=== PATIENT | female | born 1975 | race Caucasian/White ===

== ENCOUNTER 2016-12-01 13:17 | Emergency (ER) | payer MEDICAID ==
[~2016-12-01] VITALS: Ht 160 cm; Wt 68.1 kg
[~2016-12-01 13:17] MED LIST: ADVA500A INH; AMBI10TA PO; HYDR-3516 PO; VENTAER INH
[2016-12-01 13:18] VITALS: BP 150/77; PULSE 87; RESP 17; TEMP 98.2; O2SAT 100
[2016-12-01] MEDS ORDERED: SODIUM CHLOR 0.9% 1000 ML INJ 1,000 ML IV SCH (13:48)
--- NOTE | 2016-12-01 13:48 | PD ---
HPI Chief Complaint: Flank/Kidney Pain Time Seen by Provider: 13:46 Travel History International Travel<30 days: No Contact w/Intl Traveler<30days: No Traveled to known affect area: No History of Present Illness HPI 40-year-old female coming in with four-day history of left flank pain , nausea, and vomiting. Patient is a history of kidney stones in the past the last one being in August 2016. Patient has seen urologist for this, but cannot remember his name. Patient denies fever, or diarrhea. Patient denies burning with urination. Patient states her last kidney stone she passed in August 2006. Patient denies , or vaginal discharge. Patient's last menstrual period was in the week of . Patient states her pain is typical for her kidney stones. Patient states her pain is now 8/10 and worsening since yesterday. Patient is allergic to tramadol. PFSH Past Medical History Asthma: Yes Anxiety: Yes Diminished Hearing: No Headaches: Yes Kidney Stones: Yes Immunizations Current: Yes Shingles: Yes ?: Not LMP: OCT 2016 : 3 Para: 2 Miscarriage: 1 Past Surgical History Abdominal Surgery: Yes (GASTRIC BYPASS) Cholecystectomy: Yes Other Surgery: Yes (KIDNEY STONES REMOVED X2) Social History Alcohol Use: Yes (SOCIALLY) Tobacco Use: No Substance Use: No Allergies-Medications (Allergen,Severity, Reaction): Coded Allergies: Tramadol (Verified Allergy, Severe, Headache, 12/01/16) Reported Meds & Prescriptions Reported Meds & Active Scripts Active Ambien (Zolpidem Tartrate) 10 Mg Tab 10 Mg PO HS PRN Reported Ventolin Hfa 18 GM Inh (Albuterol Sulfate) 90 Mcg/Act Aer 1 Puff INH Q4H PRN Advair Diskus Inh (Fluticasone-Salmeterol Inh) 500-50 Mcg/Blist Aer 1 Puff INH BID Rinse mouth after use. Review of Systems Except as stated in HPI: all other systems reviewed are Neg General / Constitutional: No: Fever, Chills Eyes: No: Visual changes HENT: No: Headaches Cardiovascular: No: Chest Pain or Discomfort Respiratory: No: Shortness of Breath Gastrointestinal: Positive: Nausea, Vomiting, No: Diarrhea, Abdominal Pain Genitourinary: Positive: Flank Pain, No: Urgency, Frequency, Dysuria, Pelvic Pain, Dyspareunia, Discharge, Vaginal Bleeding Musculoskeletal: No: Pain Skin: No Rash Neurologic: No: Weakness Psychiatric: No: Depression Endocrine: No: Polydipsia Hematologic/Lymphatic: No: Easy Bruising Physical Exam Narrative GENERAL: Patient appears in moderate distress. SKIN: Warm and dry. Mild pallor. Normal turgor. HEAD: Atraumatic. Normocephalic. EYES: Pupils equal and round. No scleral icterus. No injection or drainage. ENT: No nasal bleeding or discharge. Mucous membranes pink and somewhat dry. Pharynx is normal. NECK: Trachea midline. Supple and nontender. CARDIOVASCULAR: Regular rate and rhythm. No murmurs gallops or rubs. RESPIRATORY: No accessory muscle use. Clear to auscultation. Breath sounds equal bilaterally. GASTROINTESTINAL: Abdomen soft, non-tender, nondistended. Hepatic and splenic margins not palpable. Moderate left flank tenderness with percussion. MUSCULOSKELETAL: Extremities without clubbing, cyanosis, or edema. No obvious deformities. NEUROLOGICAL: Awake and alert. No obvious cranial nerve deficits. Motor grossly within normal limits. Five out of 5 muscle strength in the arms and legs. Normal speech. PSYCHIATRIC: Appropriate mood and affect; insight and judgment normal. Data Data Last Documented VS Vital Signs Date Time Temp Pulse Resp B/P Pulse Ox O2 Delivery O2 Flow Rate FiO2 12/01/16 15:28 16 12/01/16 13:32 87 12/01/16 13:18 98.2 150/77 100 Orders Complete Blood Count With Diff (12/01/16 13:48) Comprehensive Metabolic Panel (12/01/16 13:48) Urinalysis - C+S If Indicated (12/01/16 13:48) Iv Access Insert/Monitor (12/01/16 13:48) NPO (12/01/16 13:48) Morphine Inj (Morphine Inj) (12/01/16 14:00) Ondansetron Inj (Zofran Inj) (12/01/16 14:00) Sodium Chlor 0.9% 1000 Ml Inj (Ns 1000 M (12/01/16 13:48) Sodium Chloride 0.9% Flush (Ns Flush) (12/01/16 14:00) Ketorolac Inj (Toradol Inj) (12/01/16 14:00) Ed Urine Pregnancytest Poc (12/01/16 13:56) Urine Culture (12/01/16 14:20) Sodium Chlor 0.9% 1000 Ml Inj (Ns 1000 M (12/01/16 15:15) Ciprofloxacin (Cipro) (12/01/16 15:15) Labs Laboratory Tests Test 12/01/16 14:20 White Blood Count 6.4 TH/MM3 Red Blood Count 4.83 MIL/MM3 Hemoglobin 11.3 GM/DL Hematocrit 35.2 % Mean Corpuscular Volume 72.8 FL Mean Corpuscular Hemoglobin 23.5 PG Mean Corpuscular Hemoglobin 32.2 % Concent Red Cell Distribution Width 15.8 % Platelet Count 292 TH/MM3 Mean Platelet Volume 9.1 FL Neutrophils (%) (Auto) 68.0 % Lymphocytes (%) (Auto) 22.9 % Monocytes (%) (Auto) 6.0 % Eosinophils (%) (Auto) 1.9 % Basophils (%) (Auto) 1.2 % Neutrophils # (Auto) 4.4 TH/MM3 Lymphocytes # (Auto) 1.5 TH/MM3 Monocytes # (Auto) 0.4 TH/MM3 Eosinophils # (Auto) 0.1 TH/MM3 Basophils # (Auto) 0.1 TH/MM3 CBC Comment AUTO DIFF Differential Comment AUTO DIFF CONFIRMED Ovalocytes 1+ Keratocytes OCC Urine Color YELLOW Urine Turbidity HAZY Urine pH 6.0 Urine Specific [place] 1.009 Urine Protein TRACE mg/dL Urine Glucose (UA) NEG mg/dL Urine Ketones NEG mg/dL Urine Occult Blood MOD Urine Nitrite NEG Urine Bilirubin NEG Urine Urobilinogen LESS THAN 2.0 MG/DL Urine Leukocyte Esterase LARGE Urine RBC 11 /hpf Urine WBC 60 /hpf Urine Squamous Epithelial 23 /hpf Cells Urine Mucus FEW /lpf Microscopic Urinalysis Comment CULTURE INDICATED Sodium Level 141 MEQ/L Potassium Level 3.2 MEQ/L Chloride Level 105 MEQ/L Carbon Dioxide Level 29.0 MEQ/L Anion Gap 7 MEQ/L Blood Urea Nitrogen 7 MG/DL Creatinine 0.59 MG/DL Estimat Glomerular Filtration 112 ML/MIN Rate Random Glucose 93 MG/DL Calcium Level 8.8 MG/DL Total Bilirubin 0.7 MG/DL Aspartate Amino Transf 11 U/L (AST/SGOT) Alanine Aminotransferase 21 U/L (ALT/SGPT) Alkaline Phosphatase 76 U/L Total Protein 7.7 GM/DL Albumin 4.0 GM/DL MDM Medical Decision Making Medical Screen Exam Complete: Yes Emergency Medical Condition: Yes Differential Diagnosis Renal colic. Urinary tract infection. Nausea. Vomiting. Renal stones. Hydronephrosis. Narrative Course Patient is felt to be in pain but medically stable at time of exam. IV access is obtained and the patient is given 4 mg IV morphine, 4 mg Zofran IV , 30 mg ketorolac IV. Labs ordered including CBC, CMP, urinalysis, and urine test. CT scan was not ordered at this time as the patient has known kidney stones and recently passed one in August 2014. Patient is given 1000 mL normal saline IV bolus. After the treatment plan the patient feels much improved. A second 1000 mL normal saline bolus is ordered. CT scan is not ordered, as patient is improved. CBC and CMP are within normal limits. Urinalysis suggestive of urinary tract infection as well as large blood. Patiently treated both for UTI as well as renal colic. Patient given Cipro 500 mg twice a day 7 days. Patient is started on Flomax 4 mg daily at bedtime. #10 Patient is given Zofran 4 mg when necessary nausea #12. Patient given Lortab 5/325 one every 6 hours when necessary pain #30. Patient is to follow with her primary care physician or urologist as discussed. Patient is to return to the emergency room if symptoms do not improve or worsen. Diagnosis Primary Impression: Renal colic on left side Additional Impression: Urinary tract infection Qualified Code: N39.0 - Urinary tract infection with hematuria, site unspecified Referrals: Primary Care Physician Urologist Patient Instructions: Dysuria (ED), General Instructions, Renal Colic (ED) Scripts Ciprofloxacin (Cipro)500 Mg [id number] Mg PO BID #14 TAB Prov:Riley Flower MD 12/01/16 Tamsulosin (Flomax)0.4 Mg Cap0.4 Mg PO HS #10 CAP Ref 0 Prov:Riley Flower MD 12/01/16 Ondansetron (Zofran)4 Mg Tab4 Mg PO Q6HR PRN (NAUSEA OR VOMITING) #12 TAB Prov:Riley Flower MD 12/01/16 Hydrocodone-Acetaminophen 5-325 mg Tab1 Tab PO Q6H PRN (PAIN) #30 TAB Ref 0 Prov:Riley Flower MD 12/01/16 Disposition: 01 DISCHARGE HOME Condition: Stable Arcadio Parker Dec 01, 2016 13:48
[2016-12-01] MEDS ORDERED: KETOROLAC TROMETHAMINE 30 MG/ML (IVP) VIAL IVP ONE (14:00)
[2016-12-01] MEDS ORDERED: MORPHINE SULFATE 4 MG/ML INJ IV PUSH ONE (14:00)
[2016-12-01] MEDS ORDERED: ONDANSETRON HCL 4 MG/2 ML VIAL IVP ONE (14:00)
[2016-12-01] MEDS ORDERED: SODIUM CHLORIDE 0.9% FLUSH 5 ML FLUSH IVF PRN (14:00)
[2016-12-01 14:40] LABS: AUTOMATED NEUTROPHIL # 4.4 TH/MM3 (1.8-7.7); BASOPHIL # 0.1 TH/MM3 (0-0.2); BASOPHIL % 1.2 % (0.0-2.0); EOSINOPHIL # 0.1 TH/MM3 (0-0.4); EOSINOPHIL % 1.9 % (0.0-4.0); HEMATOCRIT 35.2 % (35.0-46.0); LYMPH % 22.9 % (9.0-44.0); LYMPHOCYTE # 1.5 TH/MM3 (1.0-4.8); MEAN CELL VOLUME 72.8 FL (80.0-100.0); MEAN CORPUSCULAR HEMOGLOBIN 23.5 PG (27.0-34.0); MEAN CORPUSCULAR HGB CONC 32.2 % (32.0-36.0); PLATELET COUNT 292 TH/MM3 (150-450); RED BLOOD COUNT 4.83 MIL/MM3 (4.00-5.30); RED CELL DISTRIBUTION WIDTH 15.8 % (11.6-17.2); WHITE BLOOD COUNT 6.4 TH/MM3 (4.0-11.0)
[2016-12-01 14:42] LABS: HEMO FLAGS AUTO DIFF
[2016-12-01 14:47] LABS: BLOOD, URINE MOD (NEG); COMMENT (UR) CULTURE INDICATED; CULTURE IF INDICATED CULTURE INDICATED; GLUCOSE,URINE NEG (NEG); KETONE, URINE NEG (NEG); MUCUS URINE FEW /lpf (OCC); NITRITE,URINE NEG (NEG); SQUAMOUS EPITHELIAL CELL URINE 23 /hpf (0-5); URINE COLOR YELLOW (YELLW/STRAW)
[2016-12-01 15:00] LABS: ALT (GPT) 21 U/L (10-53); ANION GAP 7 MEQ/L (5-15); AST (GOT) 11 U/L (15-37); BLOOD UREA NITROGEN 7 MG/DL (7-18); CHLORIDE 105 MEQ/L (98-107); GLOMERULAR FILTRATION RATE 112 ML/MIN (>89); POTASSIUM 3.2 MEQ/L (3.5-5.1); SODIUM (NA) 141 MEQ/L (136-145)
[2016-12-01 15:02] LABS: ALKALINE PHOSPHATASE 76 U/L (45-117); TOTAL BILIRUBIN ADULT 0.7 MG/DL (0.2-1.0)
[2016-12-01] MEDS ORDERED: CIPROFLOXACIN 500 MG TAB PO ONE (15:15)
[2016-12-01] MEDS ORDERED: SODIUM CHLOR 0.9% 1000 ML INJ 1,000 ML IV ONE (15:15)
[2016-12-01 15:22] LABS: KERATOCYTES OCC (NORMAL); OVALOCYTES 1+ (NORMAL); SCAN/DIFF AUTO DIFF CONFIRMED
[2016-12-01 15:28] VITALS: RESP 16
[2016-12-01] MEDS ORDERED: TAMS5CAP PO (15:38)
[2016-12-01] MEDS ORDERED: ZOFR4TAB PO (15:38)
[2016-12-01] MEDS ORDERED: HYDR-3516 PO (15:38)
[2016-12-01] MEDS ORDERED: CIPR-9 PO (15:38)
[2016-12-01] MEDS ORDERED: AMBI10TA PO (16:35)
[2016-12-06] MEDS ORDERED: NORE1TAB57 PO (17:05)
[2016-12-30] MEDS ORDERED: AMBI10TA PO (11:49)
[2017-01-18] MEDS ORDERED: FERR325T2 PO (15:02)
[2017-01-20] MEDS ORDERED: ESTR1.25 PO (13:20)
[2017-01-20] MEDS ORDERED: ONDA4TAB7 SL (13:54)
[2017-01-25] MEDS ORDERED: AMBI10TA PO (11:17)
[2017-01-31] MEDS ORDERED: DEPO150I IM (15:52)
[2017-01-31] MEDS ORDERED: HYDR-4107 PO (15:53)
[2017-02-03] MEDS ORDERED: NEBULIZER1 MI1 (14:03)
[2017-02-03] MEDS ORDERED: ALBU.5I NEB (14:03)
[2017-02-21] MEDS ORDERED: PANT40TA3 PO (11:21)
[2017-02-21] MEDS ORDERED: HYDR-3516 PO (11:24)
[2017-02-21] MEDS ORDERED: AMBI10TA PO (11:24)
[2017-03-13] MEDS ORDERED: CLOT10TR PO (16:08)
[2017-03-21] MEDS ORDERED: FLUC200T2 PO (18:11)
[2017-03-22] MEDS ORDERED: PANT40TA3 PO (08:49)
[2017-03-26] MEDS ORDERED: GABA300C5 PO (14:35)
[2017-03-27] MEDS ORDERED: AMBI10TA PO (20:06)
[2017-04-13] MEDS ORDERED: SERT-132 PO (10:14)
[2017-04-13] MEDS ORDERED: TRAZ100T4 PO (10:16)
[2017-04-13] MEDS ORDERED: SPRI28TA PO (10:20)
[2017-04-26] MEDS ORDERED: AMBI10TA PO (10:57)
[2017-05-15] MEDS ORDERED: VENL37.5 PO (16:19)
[2017-05-15] MEDS ORDERED: ULTR50TA5 PO (16:19)
[2017-05-16] MEDS ORDERED: ADVA500A INH (08:34)
== END 2016-12-01 16:42 | disposition home or self-care (01) ==
LOC: NEPC 13:17
DX: N39.0 Urinary tract infection, site not specified (principal); N23 Unspecified renal colic; Z87.442 Personal history of urinary calculi; J45.909 Unspecified asthma, uncomplicated
CPT/HCPCS: 80053; 81001; 84703; 85025; 87086; 96361; 96374; 96375; 99284; J1885; J2270; J2405; J7030

== ENCOUNTER 2017-01-17 17:27 | Emergency (ER) | payer MEDICAID ==
[~2017-01-17] VITALS: Ht 160 cm; Wt 64.0 kg
[~2017-01-17 17:27] MED LIST changes: +NORE1TAB57 PO; +ZOFR4TAB PO
[2017-01-17 17:30] VITALS: BP 140/76; PULSE 83; RESP 16; TEMP 97.7; O2SAT 100
[2017-01-17] MEDS ORDERED: SODIUM CHLORIDE 0.9% FLUSH 5 ML FLUSH IVF PRN ×2 (17:45→18:15)
[2017-01-17 18:13] LABS: AUTOMATED NEUTROPHIL # 5.3 TH/MM3 (1.8-7.7); BASOPHIL # 0.1 TH/MM3 (0-0.2); BASOPHIL % 1.1 % (0.0-2.0); EOSINOPHIL # 0.2 TH/MM3 (0-0.4); EOSINOPHIL % 2.8 % (0.0-4.0); HEMATOCRIT 30.7 % (35.0-46.0); LYMPH % 21.5 % (9.0-44.0); LYMPHOCYTE # 1.7 TH/MM3 (1.0-4.8); MEAN CELL VOLUME 72.4 FL (80.0-100.0); MEAN CORPUSCULAR HEMOGLOBIN 22.7 PG (27.0-34.0); MEAN CORPUSCULAR HGB CONC 31.4 % (32.0-36.0); NEUT % 68.6 % (16.0-70.0); PLATELET COUNT 393 TH/MM3 (150-450); RED BLOOD COUNT 4.24 MIL/MM3 (4.00-5.30); RED CELL DISTRIBUTION WIDTH 15.4 % (11.6-17.2); WHITE BLOOD COUNT 7.8 TH/MM3 (4.0-11.0)
[2017-01-17] MEDS ORDERED: MORPHINE SULFATE 4 MG/ML INJ IV PUSH ONE (18:15)
--- NOTE | 2017-01-17 18:20 | PD ---
HPI Chief Complaint: Flank/Kidney Pain Time Seen by Provider: 17:44 Travel History International Travel<30 days: No Contact w/Intl Traveler<30days: No Traveled to known affect area: No History of Present Illness HPI 41-year-old female with history of kidney stones here for evaluation of left flank pain. Pain started yesterday, was intermittent, sharp, radiates to her left lower abdomen, associated with nausea and vomiting as well as dysuria and hematuria. Today pain became more constant, is moderate to severe, no modifying factors. No fevers or chills. Patient reports history of kidney stones with history of lithotripsy, most recent kidney stone was in August 2016. PFSH Past Medical History Asthma: Yes Anxiety: Yes Diminished Hearing: No Headaches: Yes Kidney Stones: Yes Immunizations Current: Yes Shingles: Yes ?: Not LMP: 01/05/17 : 3 Para: 2 Miscarriage: 1 Past Surgical History Abdominal Surgery: Yes (GASTRIC BYPASS) Cholecystectomy: Yes Other Surgery: Yes (KIDNEY STONES REMOVED X2) Social History Alcohol Use: Yes (SOCIALLY) Tobacco Use: No Substance Use: No Allergies-Medications (Allergen,Severity, Reaction): Coded Allergies: Tramadol (Verified Allergy, Severe, Headache, 12/06/16) Reported Meds & Prescriptions Reported Meds & Active Scripts Active Ambien (Zolpidem Tartrate) 10 Mg Tab 10 Mg PO HS PRN Loestrin 1.5/30 (Norethindrone-Ethinyl Estradiol) 1.5-30 Mg-Mcg Tab 1 Tab PO DAILY Reported Ventolin Hfa 18 GM Inh (Albuterol Sulfate) 90 Mcg/Act Aer 1 Puff INH Q4H PRN Advair Diskus Inh (Fluticasone-Salmeterol Inh) 500-50 Mcg/Blist Aer 1 Puff INH BID Rinse mouth after use. Review of Systems Except as stated in HPI: all other systems reviewed are Neg Physical Exam Narrative GENERAL: Well-developed, well-nourished, no acute distress. SKIN: Warm and dry. No rash. HEAD: Atraumatic. Normocephalic. EYES: Pupils equal and round. No scleral icterus. No injection or drainage. ENT: Mucous membranes pink and moist. CARDIOVASCULAR: Regular rate and rhythm. RESPIRATORY: No accessory muscle use. Clear to auscultation. Breath sounds equal bilaterally. GASTROINTESTINAL: Abdomen soft, non-tender, nondistended. MUSCULOSKELETAL: No obvious deformities. No clubbing. No cyanosis. No edema. Moderate left CVA tenderness, no right CVA tenderness. NEUROLOGICAL: Awake and alert. No obvious cranial nerve deficits. Motor grossly within normal limits. Normal speech. PSYCHIATRIC: Appropriate mood and affect; insight and judgment normal. Data Data Last Documented VS Vital Signs Date Time Temp Pulse Resp B/P Pulse Ox O2 Delivery O2 Flow Rate FiO2 01/17/17 17:30 97.7 83 16 140/76 100 Orders Basic Metabolic Panel (Bmp) (01/17/17 17:44) Complete Blood Count With Diff (01/17/17 17:44) Prothrombin Time / Inr (Pt) (01/17/17 17:44) Act Partial Throm Time (Ptt) (01/17/17 17:44) Iv Access Insert/Monitor (01/17/17 17:44) Ecg Monitoring (01/17/17 17:44) Oximetry (01/17/17 17:44) Sodium Chloride 0.9% Flush (Ns Flush) (01/17/17 17:45) Urinalysis - C+S If Indicated (01/17/17 17:45) Beta Hcg (Quant/Titer) (01/17/17 17:58) Ct Abd/Pel W/O Iv Contrast (01/17/17 18:15) Sodium Chloride 0.9% Flush (Ns Flush) (01/17/17 18:15) Morphine Inj (Morphine Inj) (01/17/17 18:15) Ondansetron Inj (Zofran Inj) (01/17/17 18:30) Urine Culture (01/17/17 18:00) Hydromorphone Pf Inj (Dilaudid Pf Inj) (01/17/17 19:30) Ceftriaxone Inj (Rocephin Inj) (01/17/17 19:30) Sodium Chlor 0.9% 1000 Ml Inj (Ns 1000 M (01/17/17 19:30) Ed Urine Pregnancytest Poc (01/17/17 20:25) Labs Laboratory Tests Test 01/17/17 18:00 White Blood Count 7.8 TH/MM3 Red Blood Count 4.24 MIL/MM3 Hemoglobin 9.6 GM/DL Hematocrit 30.7 % Mean Corpuscular Volume 72.4 FL Mean Corpuscular Hemoglobin 22.7 PG Mean Corpuscular Hemoglobin 31.4 % Concent Red Cell Distribution Width 15.4 % Platelet Count 393 TH/MM3 Mean Platelet Volume 8.8 FL Neutrophils (%) (Auto) 68.6 % Lymphocytes (%) (Auto) 21.5 % Monocytes (%) (Auto) 6.0 % Eosinophils (%) (Auto) 2.8 % Basophils (%) (Auto) 1.1 % Neutrophils # (Auto) 5.3 TH/MM3 Lymphocytes # (Auto) 1.7 TH/MM3 Monocytes # (Auto) 0.5 TH/MM3 Eosinophils # (Auto) 0.2 TH/MM3 Basophils # (Auto) 0.1 TH/MM3 CBC Comment AUTO DIFF Differential Comment AUTO DIFF CONFIRMED Platelet Estimate NORMAL Platelet Morphology Comment NORMAL Ovalocytes 2+ Prothrombin Time 10.0 SEC Prothromb Time International 0.9 RATIO Ratio Activated Partial 24.2 SEC Thromboplast Time Urine Color YELLOW Urine Turbidity HAZY Urine pH 6.0 Urine Specific [place] 1.010 Urine Protein TRACE mg/dL Urine Glucose (UA) NEG mg/dL Urine Ketones NEG mg/dL Urine Occult Blood LARGE Urine Nitrite POS Urine Bilirubin NEG Urine Urobilinogen LESS THAN 2.0 MG/DL Urine Leukocyte Esterase LARGE Urine RBC /hpf Urine WBC 30 /hpf Urine Squamous Epithelial 7 /hpf Cells Urine Bacteria MOD /hpf Microscopic Urinalysis Comment CULTURE INDICATED Sodium Level 142 MEQ/L Potassium Level 4.0 MEQ/L Chloride Level 109 MEQ/L Carbon Dioxide Level 26.9 MEQ/L Anion Gap 6 MEQ/L Blood Urea Nitrogen 10 MG/DL Creatinine 0.63 MG/DL Estimat Glomerular Filtration 104 ML/MIN Rate Random Glucose 90 MG/DL Calcium Level 8.1 MG/DL [facility] Medical Decision Making Medical Screen Exam Complete: Yes Emergency Medical Condition: Yes Medical Record Reviewed: Yes Differential Diagnosis Nephrolithiasis, pyelonephritis, UTI, cystitis, colitis, dissection Narrative Course Vital signs show heart rate 83, blood pressure 140/76, pulse ox 100% on room air , oral temp of 97.7F. CBC is remarkable for hemoglobin 9.6, hematocrit 30.7, MCV 72, MCH 22, otherwise unremarkable. BMP is unremarkable. UA shows large occult blood, positive nitrites, large leukocyte esterase, innumerable rbc's, 30 wbc's, moderate bacteria, culture indicated. CT abdomen pelvis: CONCLUSION: 1. No acute renal abnormality. No perceptible stone or evidence of obstructive uropathy. 2. 15 mm right renal hypodensity likely a cyst. 3. Tiny fat-containing umbilical hernia. 4. Previous cholecystectomy and gastric bypass. 5. Normal appendix. The patient was made aware of all findings. I told her that I would like to do a rectal exam to check her stool for occult blood. She is declining this exam at this time. She is still complaining of left flank pain despite receiving 2 doses of pain medication. I told her I would like to admit her for further pain control, however the patient does not wish to be admitted at this time. Plan is to discharge her home with pain medication and antibiotics to cover for possible pyelonephritis given her UA findings. She will follow-up with her primary care physician this week. She was informed on when to return to the emergency department. She verbalizes understanding and agreement with plan. Diagnosis Primary Impression: Left flank pain Additional Impression: UTI (urinary tract infection) Qualified Code: N10 - Acute pyelonephritis Referrals: Primary Care Physician 3 days Additional Instructions: Follow-up with your primary care physician this week. Take medications as prescribed. Return to the emergency department for worsening symptoms or any other concerns. Scripts Oxycodone-Acetaminophen (Percocet)5-325 mg Tab1 Tab PO Q6H PRN (PAIN) #15 TAB Ref 0 Prov:Wilmer Webber MD 01/17/17 Sulfamethoxazole-Trimethoprim (Bactrim DS)800-160 Mg Tab1 Tab PO BID #20 TAB Ref 0 Prov:Wilmer Webber MD 01/17/17 Disposition: 01 DISCHARGE HOME Condition: Stable Wilmer Webber MD Jan 17, 2017 18:20
[2017-01-17 18:21] LABS: HEMO FLAGS AUTO DIFF
[2017-01-17] MEDS ORDERED: ONDANSETRON HCL 4 MG/2 ML VIAL IV PUSH ONE (18:30)
[2017-01-17 18:35] LABS: APTT (PATIENT) 24.2 SEC (24.3-30.1); INTERNATIONAL NORMALIZED RATIO 0.9 RATIO
[2017-01-17 18:46] LABS: BICARBONATE 26.9 MEQ/L (21.0-32.0)
[2017-01-17 19:02] LABS: OVALOCYTES 2+ (NORMAL); PLATELET ESTIMATE SMEAR NORMAL (NORMAL); PLATELET MORPHOLOGY NORMAL (NORMAL); SCAN/DIFF AUTO DIFF CONFIRMED
[2017-01-17 19:03] LABS: BACTERIA, URINE MOD /hpf; BLOOD, URINE LARGE (NEG); COMMENT (UR) CULTURE INDICATED; CULTURE IF INDICATED CULTURE INDICATED; GLUCOSE,URINE NEG (NEG); KETONE, URINE NEG (NEG); SQUAMOUS EPITHELIAL CELL URINE 7 /hpf (0-5); URINE COLOR YELLOW (YELLW/STRAW)
[2017-01-17 19:04] LABS: NITRITE,URINE POS (NEG)
[2017-01-17] MEDS ORDERED: cefTRIAXone INJ 1,000 MG in SODIUM CHLORIDE 0.9% INJ 100 ML IV ONE (19:30)
[2017-01-17] MEDS ORDERED: SODIUM CHLOR 0.9% 1000 ML INJ 1,000 ML IV ONE (19:30)
[2017-01-17] MEDS ORDERED: HYDROmorphone HCL PF 1 MG/ML VIAL IV PUSH ONE ×2 (19:30→21:30)
--- NOTE | 2017-01-17 21:00 | RADRPT ---
EXAM DATE/TIME: 01/17/2017 20:36 [facility] COMPARISON: No previous studies available for comparison. INDICATIONS : Left flank pain for 1 day; evaluate for calculi. ORAL CONTRAST: No oral contrast ingested. RADIATION DOSE: 8.86 CTDIvol (mGy) MEDICAL HISTORY : None SURGICAL HISTORY : Cholecystectomy. Gastric bypass. ENCOUNTER: Initial ACUITY: 1 day PAIN SCALE: 6/10 LOCATION: Left flank TECHNIQUE: Volumetric scanning of the abdomen and pelvis was performed. Using automated exposure control and ad justment of the mA and/or kV according to patient size, radiation dose was kept as low as reasonably achievable to obtain optimal diagnostic quality images. FINDINGS: LOWER LUNGS: The visualized lower lungs are clear. LIVER: Homogeneous density without lesion. There is no dilation of the biliary tree. Previous cholecystecto my. SPLEEN: Normal size without lesion. PANCREAS: Within normal limits. KIDNEYS: Suspected 15 mm cyst of the right mid zone. ADRENAL GLANDS: Within normal limits. VASCULAR: There is no aortic aneurysm. BOWEL/MESENTERY: The stomach, small bowel, and colon demonstrate no acute abnormality. There is no free intraperitone al air or fluid. Previous gastric bypass. The appendix is well-visualized, normal. ABDOMINAL WALL: Tiny fat-containing hernia at the umbilicus, series 2 image 80. RETROPERITONEUM: There is no lymphadenopathy. BLADDER: No wall thickening or mass. REPRODUCTIVE: Within normal limits. INGUINAL: There is no lymphadenopathy or hernia. MUSCULOSKELETAL: Within normal limits for patient age. CONCLUSION: 1. No acute renal abnormality. No perceptible stone or evidence of obstructive uropathy. 2. 15 mm right renal hypodensity likely a cyst. 3. Tiny fat-containing umbilical hernia. 4. Previous cholecystectomy and gastric bypass. 5. Normal appendix. Devante Clark MD on January 17, 2017 at 20:55 Board Certified Radiologist. This report was verified electronically.
[2017-01-17] MEDS ORDERED: PERC5TAB12 PO (21:19)
[2017-01-17] MEDS ORDERED: BACT800T5 PO (21:19)
[2017-01-17 22:35] LABS: BETA HCG QUANT LESS THAN 1 MIU/ML (0-5)
[2017-01-18] MEDS ORDERED: FERR325T2 PO (15:02)
[2017-01-20] MEDS ORDERED: ESTR1.25 PO (13:20)
[2017-01-20] MEDS ORDERED: ONDA4TAB7 SL (13:54)
[2017-01-25] MEDS ORDERED: AMBI10TA PO (11:17)
[2017-01-31] MEDS ORDERED: DEPO150I IM (15:52)
[2017-01-31] MEDS ORDERED: HYDR-4107 PO (15:53)
[2017-02-03] MEDS ORDERED: NEBULIZER1 MI1 (14:03)
[2017-02-03] MEDS ORDERED: ALBU.5I NEB (14:03)
[2017-02-21] MEDS ORDERED: PANT40TA3 PO (11:21)
[2017-02-21] MEDS ORDERED: AMBI10TA PO (11:24)
[2017-02-21] MEDS ORDERED: HYDR-3516 PO (11:24)
[2017-03-13] MEDS ORDERED: CLOT10TR PO (16:08)
[2017-03-21] MEDS ORDERED: FLUC200T2 PO (18:11)
[2017-03-22] MEDS ORDERED: PANT40TA3 PO (08:49)
[2017-03-26] MEDS ORDERED: GABA300C5 PO (14:35)
[2017-03-27] MEDS ORDERED: AMBI10TA PO (20:06)
[2017-04-13] MEDS ORDERED: SERT-132 PO (10:14)
[2017-04-13] MEDS ORDERED: TRAZ100T4 PO (10:16)
[2017-04-13] MEDS ORDERED: SPRI28TA PO (10:20)
[2017-04-26] MEDS ORDERED: AMBI10TA PO (10:57)
[2017-05-15] MEDS ORDERED: ULTR50TA5 PO (16:19)
[2017-05-15] MEDS ORDERED: VENL37.5 PO (16:19)
[2017-05-16] MEDS ORDERED: ADVA500A INH (08:34)
== END 2017-01-17 21:51 | disposition home or self-care (01) ==
LOC: NEPA 17:27
DX: R10.9 Unspecified abdominal pain (principal); N39.0 Urinary tract infection, site not specified; B96.20 Unspecified Escherichia coli [E. coli] as the cause of diseases classified elsewhere; R11.2 Nausea with vomiting, unspecified; R30.0 Dysuria; J45.909 Unspecified asthma, uncomplicated
CPT/HCPCS: 74176; 80048; 81001; 84702; 84703; 85025; 85610; 85730; 87077; 87086; 87186; 96374; 96375; 96376; 99284; J0696; J1170; J2270; J2405; J7030

== ENCOUNTER 2017-01-23 18:05 | Emergency (ER) | payer MEDICAID ==
[~2017-01-23] VITALS: Ht 160 cm; Wt 65.9 kg
[~2017-01-23 18:05] MED LIST changes: +BACT800T5 PO; +ESTR1.25 PO; +FERR325T2 PO; -HYDR-3516 PO; +ONDA4TAB7 SL; +PERC5TAB12 PO; -ZOFR4TAB PO
[2017-01-23 18:08] VITALS: BP 158/89; PULSE 74; RESP 16; TEMP 98.2; O2SAT 98
[2017-01-23] MEDS ORDERED: SODIUM CHLOR 0.9% 1000 ML INJ 1,000 ML IV ONE (18:41)
[2017-01-23] MEDS ORDERED: SODIUM CHLOR 0.9% 1000 ML INJ 1,000 ML IV SCH (18:48)
--- NOTE | 2017-01-23 18:57 | PD ---
HPI . Left flank pain Chief Complaint: Flank/Kidney Pain Time Seen by Provider: 18:41 Travel History International Travel<30 days: No Contact w/Intl Traveler<30days: No Traveled to known affect area: No History of Present Illness HPI Patient presents complaining with left flank pain. Symptoms started on about January 16. She was seen here on the for a presumed kidney stone. Her CT did not show a stone. Her UA did show a UTI. She was treated for pyelonephritis with Bactrim. She states that she has been taking this as directed. Despite that, she continues to have left flank pain. She states that she just does not feel well. She states that she is hot and cold. She has nausea. She is not vomiting. She does not currently have any urinary tract symptoms. PFSH Past Medical History Asthma: Yes Anxiety: Yes Diminished Hearing: No Headaches: Yes Kidney Stones: Yes Immunizations Current: Yes Shingles: Yes Tetanus Vaccination: > 5 Years ?: Not LMP: 01/05/2017 : 3 Para: 2 Miscarriage: 1 Past Surgical History Abdominal Surgery: Yes (GASTRIC BYPASS) Cholecystectomy: Yes Other Surgery: Yes (KIDNEY STONES REMOVED X2) Social History Alcohol Use: Yes (SOCIALLY) Tobacco Use: No Substance Use: No Allergies-Medications (Allergen,Severity, Reaction): Coded Allergies: Tramadol (Verified Allergy, Severe, Headache, 01/23/17) Reported Meds & Prescriptions Reported Meds & Active Scripts Active Ondansetron Odt 4 Mg Tab 4 Mg SL Q6HR PRN Premarin (Estrogens Conjugated) 1.25 Mg Tab 1.25 Mg PO DAILY Ferrous Sulfate DR (Ferrous Sulfate) 325 Mg Tabdr 1 Tab PO BID Percocet (Oxycodone-Acetaminophen) 5-325 mg Tab 1 Tab PO Q6H PRN Bactrim DS (Sulfamethoxazole-Trimethoprim) 800-160 Mg Tab 1 Tab PO BID Ambien (Zolpidem Tartrate) 10 Mg Tab 10 Mg PO HS PRN Loestrin 1.5/30 (Norethindrone-Ethinyl Estradiol) 1.5-30 Mg-Mcg Tab 1 Tab PO DAILY Reported Ventolin Hfa 18 GM Inh (Albuterol Sulfate) 90 Mcg/Act Aer 1 Puff INH Q4H PRN Advair Diskus Inh (Fluticasone-Salmeterol Inh) 500-50 Mcg/Blist Aer 1 Puff INH BID Rinse mouth after use. Review of Systems Except as stated in HPI: all other systems reviewed are Neg General / Constitutional: Positive: Chills Gastrointestinal: Positive: Nausea, No: Vomiting, Diarrhea, Abdominal Pain Genitourinary: Positive: Flank Pain, No: Urgency, Frequency, Dysuria Musculoskeletal: Positive: Weakness Neurologic: Positive: Change in Mentation (she states she feels spaced out) Physical Exam Narrative GENERAL: This is a healthy-appearing young woman who does not appear to be in any acute distress. SKIN: Warm and dry. Normal color. HEAD: Atraumatic. Normocephalic. EYES: Pupils equal and round. ENT: No nasal bleeding or discharge. Mucous membranes pink and moist. NECK: Trachea midline. Neck is supple. CARDIOVASCULAR: Regular rate and rhythm. Heart sounds are normal. RESPIRATORY: No accessory muscle use. Lungs full air movement throughout. GASTROINTESTINAL: Abdomen soft, non-tender, nondistended. I am unable to elicit any CVA tenderness. MUSCULOSKELETAL: No obvious deformities. No edema. NEUROLOGICAL: Awake and alert. No obvious cranial nerve deficits. Motor grossly within normal limits. Normal speech. PSYCHIATRIC: Appropriate mood and affect; insight and judgment normal. Data Data Last Documented VS Vital Signs Date Time Temp Pulse Resp B/P Pulse Ox O2 Delivery O2 Flow Rate FiO2 01/23/17 18:45 17 01/23/17 18:08 98.2 74 158/89 98 Orders Complete Blood Count With Diff (01/23/17 18:41) Urinalysis - C+S If Indicated (01/23/17 18:41) Sodium Chlor 0.9% 1000 Ml Inj (Ns 1000 M (01/23/17 18:41) Comprehensive Metabolic Panel (01/23/17 18:48) Lactic Acid (01/23/17 18:48) Ondansetron Inj (Zofran Inj) (01/23/17 19:00) Sodium Chlor 0.9% 1000 Ml Inj (Ns 1000 M (01/23/17 18:48) Sodium Chloride 0.9% Flush (Ns Flush) (01/23/17 19:00) Ketorolac Inj (Toradol Inj) (01/23/17 19:00) Labs Laboratory Tests Test 01/23/17 19:30 White Blood Count 7.8 TH/MM3 Red Blood Count 4.22 MIL/MM3 Hemoglobin 9.6 GM/DL Hematocrit 29.9 % Mean Corpuscular Volume 71.0 FL Mean Corpuscular Hemoglobin 22.8 PG Mean Corpuscular Hemoglobin 32.1 % Concent Red Cell Distribution Width 15.4 % Platelet Count 354 TH/MM3 Mean Platelet Volume 9.4 FL Neutrophils (%) (Auto) 65.5 % Lymphocytes (%) (Auto) 24.2 % Monocytes (%) (Auto) 6.6 % Eosinophils (%) (Auto) 2.7 % Basophils (%) (Auto) 1.0 % Neutrophils # (Auto) 5.1 TH/MM3 Lymphocytes # (Auto) 1.9 TH/MM3 Monocytes # (Auto) 0.5 TH/MM3 Eosinophils # (Auto) 0.2 TH/MM3 Basophils # (Auto) 0.1 TH/MM3 CBC Comment AUTO DIFF Urine Color YELLOW Urine Turbidity CLEAR Urine pH 6.5 Urine Specific [place] 1.009 Urine Protein NEG mg/dL Urine Glucose (UA) NEG mg/dL Urine Ketones NEG mg/dL Urine Occult Blood SMALL Urine Nitrite NEG Urine Bilirubin NEG Urine Urobilinogen LESS THAN 2.0 MG/DL Urine Leukocyte Esterase SMALL Urine RBC LESS THAN 1 /hpf Urine WBC 1 /hpf Urine Squamous Epithelial 4 /hpf Cells Urine Mucus FEW /lpf Microscopic Urinalysis Comment CULT NOT INDICATED Sodium Level 139 MEQ/L Potassium Level 4.0 MEQ/L Chloride Level 105 MEQ/L Carbon Dioxide Level 27.1 MEQ/L Anion Gap 7 MEQ/L Blood Urea Nitrogen 9 MG/DL Creatinine 0.63 MG/DL Estimat Glomerular Filtration 104 ML/MIN Rate Random Glucose 78 MG/DL Lactic Acid Level 0.6 mmol/L Calcium Level 8.3 MG/DL Total Bilirubin 0.3 MG/DL Aspartate Amino Transf 13 U/L (AST/SGOT) Alanine Aminotransferase 17 U/L (ALT/SGPT) Alkaline Phosphatase 49 U/L Total Protein 7.4 GM/DL Albumin 3.4 GM/DL [facility] Medical Decision Making Medical Screen Exam Complete: Yes Emergency Medical Condition: Yes Medical Record Reviewed: Yes (I have reviewed her record from 01/17. CT was negative for stone. UA did show a UTI. She was treated with Bactrim.) Differential Diagnosis Differential diagnosis of flank pain includes but is not limited to kidney stone , pyelonephritis, musculoskeletal pain, PE Narrative Course Patient presents complaining with left flank pain. She states that she is feeling "spaced out." I have ordered a repeat UA, CBC, comprehensive panel, lipase. She will be given IV fluids. She will be given IV Toradol and Zofran. CBC & BMP Diagram 01/23/17 19:30 Her UA is markedly improved. She now has only small leukocyte esterase, 1 white cell and no bacteria. I have not found any objective reason for her continued symptoms. She is stable to follow up with her primary care physician. Diagnosis Primary Impression: Left flank pain Patient Instructions: Flank Pain (ED), General Instructions Scripts Ibuprofen 800 Mg [id number] Mg PO Q8H PRN (pain) #30 TAB Ref 0 Prov:Kristel De La Rosa MD 01/23/17 Cyclobenzaprine (Flexeril)10 Mg Tab10 Mg PO TID #30 TAB Ref 0 Prov:Kristel De La Rosa MD 01/23/17 Disposition: 01 DISCHARGE HOME Condition: Stable Kristel De La Rosa MD Jan 23, 2017 18:57
[2017-01-23] MEDS ORDERED: ONDANSETRON HCL 4 MG/2 ML VIAL IVP ONE (19:00)
[2017-01-23] MEDS ORDERED: SODIUM CHLORIDE 0.9% FLUSH 5 ML FLUSH IVF PRN (19:00)
[2017-01-23] MEDS ORDERED: KETOROLAC TROMETHAMINE 30 MG/ML (IVP) VIAL IVP ONE (19:00)
[2017-01-23 19:51] LABS: AUTOMATED NEUTROPHIL # 5.1 TH/MM3 (1.8-7.7); BASOPHIL # 0.1 TH/MM3 (0-0.2); EOSINOPHIL # 0.2 TH/MM3 (0-0.4); EOSINOPHIL % 2.7 % (0.0-4.0); HEMATOCRIT 29.9 % (35.0-46.0); LYMPH % 24.2 % (9.0-44.0); LYMPHOCYTE # 1.9 TH/MM3 (1.0-4.8); MEAN CORPUSCULAR HEMOGLOBIN 22.8 PG (27.0-34.0); MEAN CORPUSCULAR HGB CONC 32.1 % (32.0-36.0); MONO % 6.6 % (0.0-8.0); NEUT % 65.5 % (16.0-70.0); PLATELET COUNT 354 TH/MM3 (150-450); RED BLOOD COUNT 4.22 MIL/MM3 (4.00-5.30); RED CELL DISTRIBUTION WIDTH 15.4 % (11.6-17.2); WHITE BLOOD COUNT 7.8 TH/MM3 (4.0-11.0)
[2017-01-23 19:54] LABS: BLOOD, URINE SMALL (NEG); COMMENT (UR) CULT NOT INDICATED; CULTURE IF INDICATED CULT NOT INDICATED; GLUCOSE,URINE NEG (NEG); KETONE, URINE NEG (NEG); MUCUS URINE FEW /lpf (OCC); NITRITE,URINE NEG (NEG); PH, URINE 6.5 (5.0-8.5); SQUAMOUS EPITHELIAL CELL URINE 4 /hpf (0-5); URINE COLOR YELLOW (YELLW/STRAW)
[2017-01-23 20:07] LABS: HEMO FLAGS AUTO DIFF
[2017-01-23 20:14] LABS: ALKALINE PHOSPHATASE 49 U/L (45-117); ALT (GPT) 17 U/L (10-53); ANION GAP 7 MEQ/L (5-15); AST (GOT) 13 U/L (15-37); BICARBONATE 27.1 MEQ/L (21.0-32.0); BLOOD UREA NITROGEN 9 MG/DL (7-18); CHLORIDE 105 MEQ/L (98-107); GLOMERULAR FILTRATION RATE 104 ML/MIN (>89); SODIUM (NA) 139 MEQ/L (136-145); TOTAL BILIRUBIN ADULT 0.3 MG/DL (0.2-1.0)
[2017-01-23] MEDS ORDERED: IBUP800T23 PO (20:20)
[2017-01-23] MEDS ORDERED: CYCL1TAB29 PO (20:20)
[2017-01-23 20:48] LABS: SCAN/DIFF AUTO DIFF CONFIRMED
[2017-01-25] MEDS ORDERED: AMBI10TA PO (11:17)
[2017-01-31] MEDS ORDERED: DEPO150I IM (15:52)
[2017-01-31] MEDS ORDERED: HYDR-4107 PO (15:53)
[2017-02-03] MEDS ORDERED: ALBU.5I NEB (14:03)
[2017-02-03] MEDS ORDERED: NEBULIZER1 MI1 (14:03)
[2017-02-21] MEDS ORDERED: PANT40TA3 PO (11:21)
[2017-02-21] MEDS ORDERED: AMBI10TA PO (11:24)
[2017-02-21] MEDS ORDERED: HYDR-3516 PO (11:24)
[2017-03-13] MEDS ORDERED: CLOT10TR PO (16:08)
[2017-03-21] MEDS ORDERED: FLUC200T2 PO (18:11)
[2017-03-22] MEDS ORDERED: PANT40TA3 PO (08:49)
[2017-03-26] MEDS ORDERED: GABA300C5 PO (14:35)
[2017-03-27] MEDS ORDERED: AMBI10TA PO (20:06)
[2017-04-13] MEDS ORDERED: SERT-132 PO (10:14)
[2017-04-13] MEDS ORDERED: TRAZ100T4 PO (10:16)
[2017-04-13] MEDS ORDERED: SPRI28TA PO (10:20)
[2017-04-26] MEDS ORDERED: AMBI10TA PO (10:57)
[2017-05-15] MEDS ORDERED: ULTR50TA5 PO (16:19)
[2017-05-15] MEDS ORDERED: VENL37.5 PO (16:19)
[2017-05-16] MEDS ORDERED: ADVA500A INH (08:34)
== END 2017-01-23 21:16 | disposition home or self-care (01) ==
LOC: NEPA 18:05
DX: R10.84 Generalized abdominal pain (principal)
CPT/HCPCS: 80053; 81001; 83605; 85025; 96361; 96374; 96375; 99284; J1885; J2405; J7030

== ENCOUNTER 2017-02-18 12:57 | Emergency (ER) | payer MEDICAID ==
[~2017-02-18] VITALS: Ht 160 cm; Wt 70.0 kg
[~2017-02-18 12:57] MED LIST changes: +ALBU.5I NEB; -AMBI10TA PO; -BACT800T5 PO; +CYCL1TAB29 PO; +DEPO150I IM; -ESTR1.25 PO; +HYDR-4107 PO; +IBUP800T23 PO; +NEBULIZER1 MI1; -NORE1TAB57 PO; -PERC5TAB12 PO
[2017-02-18 13:08] VITALS: BP 139/96; PULSE 89; RESP 17; TEMP 98.7; O2SAT 100
[2017-02-18] MEDS ORDERED: AMBI5TAB PO (13:18)
[2017-02-18 13:19] LABS: BLOOD, URINE TRACE (NEG); GLUCOSE,URINE NEG (NEG); KETONE, URINE TRACE mg/dL (NEG); NITRITE,URINE NEG (NEG)
[2017-02-18 13:21] LABS: METHOD OF COLLECTION CLEAN CATCH; URINE COLOR YELLOW (YELLW/STRAW)
[2017-02-18 13:23] LABS: BACTERIA, URINE OCC /hpf; MUCUS URINE FEW /lpf (OCC)
[2017-02-18 13:24] LABS: COMMENT (UR) CULT NOT INDICATED; CULTURE IF INDICATED CULT NOT INDICATED
[2017-02-18] MEDS ORDERED: NORC5TAB PO (13:40)
[2017-02-18] MEDS ORDERED: MACR100C2 PO (13:40)
[2017-02-18] MEDS ORDERED: ZOFR8TAB4 SL (13:40)
--- NOTE | 2017-02-18 13:41 | PD ---
HPI Chief Complaint: Flank/Kidney Pain Time Seen by Provider: 13:34 Travel History International Travel<30 days: No Contact w/Intl Traveler<30days: No Traveled to known affect area: No History of Present Illness HPI 41-year-old female with history of ureterolithiasis here with complaint of flank pain. Patient has had 3-4 days of left-sided flank pain. This is sharp. Radiates slightly into the left side of the abdomen. Associated urinary frequency but no hematuria. Patient states this feels similar previous episodes of ureterolithiasis. She is been taking Tylenol, ibuprofen without improvement of her symptoms at home. Some nausea but no vomiting. She's had history of lithotripsy 2, and states that this pain is not as severe as when she's required lithotripsy in the past. She no longer has a local urologist due to insurance change. PFSH Past Medical History Asthma: Yes Anxiety: Yes Diminished Hearing: No Headaches: Yes Kidney Stones: Yes Immunizations Current: Yes Shingles: Yes ?: Not LMP: 1.5 WEEKS : 3 Para: 2 Miscarriage: 1 Past Surgical History Abdominal Surgery: Yes (GASTRIC BYPASS) Cholecystectomy: Yes Other Surgery: Yes (KIDNEY STONES REMOVED X2) Social History Alcohol Use: Yes (SOCIALLY) Tobacco Use: No Substance Use: No Allergies-Medications (Allergen,Severity, Reaction): Coded Allergies: Tramadol (Verified Allergy, Severe, Headache, 02/18/17) Reported Meds & Prescriptions Reported Meds & Active Scripts Active Macrobid (Nitrofurantoin Monoh/Nitrofur Macro) 100 Mg Cap 100 Mg PO BID 7 Days [place] (Hydrocodone-Acetaminophen) 5-325 mg Tab 1-2 Tab PO Q6H PRN Zofran Odt (Ondansetron Odt) 8 Mg Tab 8 Mg SL Q8H PRN Albuterol Neb (Albuterol Sulfate) 2.5 Mg/0.5 Ml Neb 2.5 Mg NEB Q4HR NEB PRN Read complete instructions carefully before using. Depo-Provera Inj (Medroxyprogesterone Inj) 150 Mg/Ml Inj 150 Mg IM Q90D Reported Ambien (Zolpidem Tartrate) 5 Mg Tab 5 Mg PO HS PRN Ventolin Hfa 18 GM Inh (Albuterol Sulfate) 90 Mcg/Act Aer 1 Puff INH Q4H PRN Advair Diskus Inh (Fluticasone-Salmeterol Inh) 500-50 Mcg/Blist Aer 1 Puff INH BID Rinse mouth after use. Review of Systems Except as stated in HPI: all other systems reviewed are Neg Physical Exam Narrative GENERAL: Well-appearing female in no acute distress SKIN: Warm and dry. HEAD: Normocephalic. EYES: No scleral icterus. No injection or drainage. ENT: Mucous membranes pink and moist. NECK: Supple CARDIOVASCULAR: Regular rate and rhythm. RESPIRATORY: No accessory muscle use. GASTROINTESTINAL: Abdomen soft, left-sided CVA tenderness to palpation mild, no reproducible tenderness to palpation of the abdomen. MUSCULOSKELETAL: Normal gait NEUROLOGICAL: Awake and alert. Normal speech. PSYCHIATRIC: Appropriate mood and affect; insight and judgment normal. Data Data Last Documented VS Vital Signs Date Time Temp Pulse Resp B/P Pulse Ox O2 Delivery O2 Flow Rate FiO2 02/18/17 13:08 98.7 89 17 139/96 100 Orders Urinalysis - C+S If Indicated (02/18/17 13:09) Ketorolac Inj (Toradol Inj) (02/18/17 13:45) Acetamin-Hydrocod 325-5 Mg ([place] 5-325 (02/18/17 13:45) Labs Laboratory Tests Test 02/18/17 13:10 Urine Collection Type CLEAN CATCH Urine Color YELLOW Urine Turbidity CLEAR Urine pH 6.0 Urine Specific [place] 1.018 Urine Protein TRACE mg/dL Urine Glucose (UA) NEG mg/dL Urine Ketones TRACE mg/dL Urine Occult Blood TRACE Urine Nitrite NEG Urine Bilirubin NEG Urine Leukocyte Esterase TRACE Urine RBC 4-9 /hpf Urine WBC 3-5 /hpf Urine Squamous Epithelial 6-8 /hpf Cells Urine Bacteria OCC /hpf Urine Mucus FEW /lpf Microscopic Urinalysis Comment CULT NOT INDICATED Urine Collection Time 13:10 [facility] Medical Decision Making Medical Screen Exam Complete: Yes Emergency Medical Condition: Yes Medical Record Reviewed: Yes Differential Diagnosis 41-year-old female with history of ureterolithiasis here with 3-4 days of left- sided flank pain with urinary symptoms. Differential includes ureterolithiasis , UTI, cystitis versus pyelonephritis and less likely musculoskeletal etiology. Narrative Course Patient given Toradol, Doole. Urinalysis shows leukocyte esterase with 12 white cells, red cells and bacteria. Given the questionable UTI patient will be treated with Macrobid for home. Patient felt improved and will be discharged home with Zofran and Doole as needed for pain. I do not think patient warrants imaging at this time given overall easy to control symptoms. Patient agrees, she's had many CTs and would like to avoid further imaging if at all possible. Diagnosis Primary Impression: Renal colic Referrals: Raimundo Alas DO call for appointment Urologist call for appointment Patient Instructions: General Instructions, Renal Colic (ED) Additional Instructions: Doole as needed for pain. Zofran as needed for nausea. Antibiotics as prescribed. Med/Other Pt SpecificInfo: Prescription(s) given Scripts Nitrofurantoin Monohydrate Macrocrystals (Macrobid)100 Mg [id number] Mg PO BID 7 Days Ref 0 Prov:Aileen Husain MD 02/18/17 Hydrocodone-Acetaminophen (Doole)5-325 mg Tab1-2 Tab PO Q6H PRN (PAIN) #20 TAB Ref 0 Prov:Aileen Husain MD 02/18/17 Ondansetron Odt (Zofran Odt)8 Mg Tab8 Mg SL Q8H PRN (NAUSEA OR VOMITING) #10 TAB Ref 0 Prov:Aileen Husain MD 02/18/17 Disposition: 01 DISCHARGE HOME Condition: Stable Aileen Husain MD Feb 18, 2017 13:41
[2017-02-18] MEDS ORDERED: ACETAMINOPHEN/HYDROcodone 325 MG/5 MG TAB PO ONE (13:45)
[2017-02-18] MEDS ORDERED: KETOROLAC TROMETHAMINE 60 MG/2 ML (IM) VIAL IM ONE (13:45)
[2017-02-21] MEDS ORDERED: PANT40TA3 PO (11:21)
[2017-02-21] MEDS ORDERED: HYDR-3516 PO (11:24)
[2017-02-21] MEDS ORDERED: AMBI10TA PO (11:24)
[2017-03-13] MEDS ORDERED: CLOT10TR PO (16:08)
[2017-03-21] MEDS ORDERED: FLUC200T2 PO (18:11)
[2017-03-22] MEDS ORDERED: PANT40TA3 PO (08:49)
[2017-03-26] MEDS ORDERED: GABA300C5 PO (14:35)
[2017-03-27] MEDS ORDERED: AMBI10TA PO (20:06)
[2017-04-13] MEDS ORDERED: SERT-132 PO (10:14)
[2017-04-13] MEDS ORDERED: TRAZ100T4 PO (10:16)
[2017-04-13] MEDS ORDERED: SPRI28TA PO (10:20)
[2017-04-26] MEDS ORDERED: AMBI10TA PO (10:57)
[2017-05-15] MEDS ORDERED: VENL37.5 PO (16:19)
[2017-05-15] MEDS ORDERED: ULTR50TA5 PO (16:19)
[2017-05-16] MEDS ORDERED: ADVA500A INH (08:34)
== END 2017-02-18 14:23 | disposition home or self-care (01) ==
LOC: PHED 12:57
DX: N23 Unspecified renal colic (principal)
CPT/HCPCS: 81001; 96372; 99284; J1885

== ENCOUNTER 2017-02-28 15:47 | Emergency (ER) | payer MEDICAID ==
[~2017-02-28] VITALS: Ht 160 cm; Wt 68.0 kg
[~2017-02-28 15:47] MED LIST changes: +AMBI10TA PO; +AMBI5TAB PO; -CYCL1TAB29 PO; -FERR325T2 PO; +HYDR-3516 PO; -HYDR-4107 PO; -IBUP800T23 PO; +MACR100C2 PO; -NEBULIZER1 MI1; +NORC5TAB PO; -ONDA4TAB7 SL; +PANT40TA3 PO; +ZOFR8TAB4 SL
[2017-02-28 15:49] VITALS: BP 147/77; PULSE 78; RESP 12; TEMP 98.8; O2SAT 100
--- NOTE | 2017-02-28 15:53 | PD ---
Physical Exam Date Seen by Provider: Feb 28, 2017 Time Seen by Provider: 15:49 Narrative 41 YOWF C/O L FLANK AND CP FOR 4 WEEKS. WORSE FOR 1 WEEK. H/O GASTRIC BYPASS AND KIDNEY STONES. SEEN IN ER AT LAST WEEK AND HAD CT ABD. VSS . AWAITING BED PLACEMENT [facility] Medical Record Reviewed: Yes Supervised Visit with JAN: Yes Eugene Cordero Feb 28, 2017 15:53
[2017-02-28 17:48] VITALS: O2SAT 98
--- NOTE | 2017-02-28 17:52 | PD ---
HPI Chief Complaint: Chest Pain Time Seen by Provider: 17:19 Travel History International Travel<30 days: No Contact w/Intl Traveler<30days: No Traveled to known affect area: No History of Present Illness HPI 41-year-old female came to the emergency room with history of left sided flank and chest pain that has been going on for past 2 weeks. Patient says she was seen in this emergency room about 10 days ago for this pain. She was discharged home on pain medication but she says that she continued to be in pain and now it's worse. She saw her primary care was trying to give her referral to a GI specialist. Patient had her gastric bypass surgery 2 to 3 years ago at [facility]. She says she is afraid to eat because every time she does she feels very full and like something is pushing and causing this pain. She feels like something is swelling inside her on the left side. Vital signs were stable in the ER. Eating makes the pain worse from what it sounds like. She had a CAT scan done of her abdomen and pelvis 6 weeks ago which was negative. Patient is currently on pain medications at home. [facility] Past Medical History Narrative Medical List of her past medical, surgical, social and family history was reviewed from the nursing note. Asthma: Yes Anxiety: Yes Diminished Hearing: No Headaches: Yes Kidney Stones: Yes Immunizations Current: Yes Shingles: Yes Tetanus Vaccination: > 5 Years Influenza Vaccination: Yes ?: Not LMP: 02/13/17 : 3 Para: 2 Miscarriage: 1 Past Surgical History Abdominal Surgery: Yes (GASTRIC BYPASS) Cholecystectomy: Yes Other Surgery: Yes (KIDNEY STONES REMOVED X2) Social History Alcohol Use: No Tobacco Use: No Substance Use: No Allergies-Medications (Allergen,Severity, Reaction): Coded Allergies: Tramadol (Verified Allergy, Severe, Headache, 02/21/17) Comments List of her allergies reviewed from the nursing note. Reported Meds & Prescriptions Reported Meds & Active Scripts Active Ambien (Zolpidem Tartrate) 10 Mg Tab 10 Mg PO HS PRN Hydrocodone-Acetaminophen 5-325 mg Tab 1 Tab PO Q6H PRN Pantoprazole (Pantoprazole Sodium) 40 Mg Tab 40 Mg PO DAILY Macrobid (Nitrofurantoin Monoh/Nitrofur Macro) 100 Mg Cap 100 Mg PO BID 7 Days [place] (Hydrocodone-Acetaminophen) 5-325 mg Tab 1-2 Tab PO Q6H PRN Zofran Odt (Ondansetron Odt) 8 Mg Tab 8 Mg SL Q8H PRN Albuterol Neb (Albuterol Sulfate) 2.5 Mg/0.5 Ml Neb 2.5 Mg NEB Q4HR NEB PRN Read complete instructions carefully before using. Depo-Provera Inj (Medroxyprogesterone Inj) 150 Mg/Ml Inj 150 Mg IM Q90D Reported Ambien (Zolpidem Tartrate) 5 Mg Tab 5 Mg PO HS PRN Ventolin Hfa 18 GM Inh (Albuterol Sulfate) 90 Mcg/Act Aer 1 Puff INH Q4H PRN Advair Diskus Inh (Fluticasone-Salmeterol Inh) 500-50 Mcg/Blist Aer 1 Puff INH BID Rinse mouth after use. Narrative Medication List of her home medications reviewed from the nursing note. Review of Systems Except as stated in HPI: all other systems reviewed are Neg Physical Exam Narrative GENERAL: Awake, alert, anxious, moderate distress SKIN: Focused skin assessment warm/dry. HEAD: Atraumatic. Normocephalic. EYES: Pupils equal and round. No scleral icterus. No injection or drainage. ENT: No nasal bleeding or discharge. Mucous membranes pink and moist. NECK: Trachea midline. No JVD. CARDIOVASCULAR: Regular rate and rhythm. No murmur appreciated. RESPIRATORY: No accessory muscle use. Clear to auscultation. Breath sounds equal bilaterally. GASTROINTESTINAL: Abdomen soft, non-tender, nondistended. Hepatic and splenic margins not palpable. MUSCULOSKELETAL: No obvious deformities. No clubbing. No cyanosis. No edema. NEUROLOGICAL: Awake and alert. No obvious cranial nerve deficits. Motor grossly within normal limits. Normal speech. PSYCHIATRIC: Appropriate mood and affect; insight and judgment normal. Data Data Last Documented VS Vital Signs Date Time Temp Pulse Resp B/P Pulse Ox O2 Delivery O2 Flow Rate FiO2 02/28/17 17:48 98 Room Air 02/28/17 17:21 90 22 02/28/17 15:49 98.8 147/77 Orders Electrocardiogram (02/28/17 17:46) Basic Metabolic Panel (Bmp) (02/28/17 17:46) Ckmb (Isoenzyme) Profile (02/28/17 17:46) Complete Blood Count With Diff (02/28/17 17:46) Magnesium (Mg) (02/28/17 17:46) Prothrombin Time / Inr (Pt) (02/28/17 17:46) Act Partial Throm Time (Ptt) (02/28/17 17:46) Troponin I (02/28/17 17:46) Chest, Single Ap (02/28/17 17:46) Ecg Monitoring (02/28/17 17:46) Bilateral Bp Monitoring (02/28/17 17:46) Iv Access Insert/Monitor (02/28/17 17:46) Oximetry (02/28/17 17:46) Oxygen Administration (02/28/17 17:46) Sodium Chloride 0.9% Flush (Ns Flush) (02/28/17 18:00) Ct Abd/Pel W Iv Contrast(Rout) (02/28/17 ) Ketorolac Inj (Toradol Inj) (02/28/17 18:15) Acetamin-Hydrocod 325-5 Mg ([place] 5-325 (02/28/17 18:15) Iohexol 350 Inj (Omnipaque 350 Inj) (02/28/17 18:43) Labs Laboratory Tests Test 02/28/17 17:50 White Blood Count 5.8 TH/MM3 Red Blood Count 4.71 MIL/MM3 Hemoglobin 10.1 GM/DL Hematocrit 32.9 % Mean Corpuscular Volume 69.8 FL Mean Corpuscular Hemoglobin 21.5 PG Mean Corpuscular Hemoglobin 30.8 % Concent Red Cell Distribution Width 16.2 % Platelet Count 344 TH/MM3 Mean Platelet Volume 9.2 FL Neutrophils (%) (Auto) 69.2 % Lymphocytes (%) (Auto) 22.1 % Monocytes (%) (Auto) 6.0 % Eosinophils (%) (Auto) 2.0 % Basophils (%) (Auto) 0.7 % Neutrophils # (Auto) 4.0 TH/MM3 Lymphocytes # (Auto) 1.3 TH/MM3 Monocytes # (Auto) 0.4 TH/MM3 Eosinophils # (Auto) 0.1 TH/MM3 Basophils # (Auto) 0.0 TH/MM3 CBC Comment AUTO DIFF Differential Comment AUTO DIFF CONFIRMED Ovalocytes 1+ Prothrombin Time 10.2 SEC Prothromb Time International 0.9 RATIO Ratio Activated Partial 24.7 SEC Thromboplast Time Sodium Level 140 MEQ/L Potassium Level 3.6 MEQ/L Chloride Level 104 MEQ/L Carbon Dioxide Level 26.4 MEQ/L Anion Gap 10 MEQ/L Blood Urea Nitrogen 6 MG/DL Creatinine 0.57 MG/DL Estimat Glomerular Filtration 116 ML/MIN Rate Random Glucose 95 MG/DL Calcium Level 8.8 MG/DL Magnesium Level 2.3 MG/DL Total Creatine Kinase 80 U/L Troponin I LESS THAN 0.02 NG/ML MDM Medical Decision Making Medical Screen Exam Complete: Yes Emergency Medical Condition: Yes Medical Record Reviewed: Yes Interpretation(s) Twelve-lead EKG was reviewed by me. Normal sinus rhythm, normal axis, nonspecific ST-T wave changes. Heart rate of 70 bpm. Differential Diagnosis ACS, non-STEMI, abdominal pain NOS Narrative Course 6:38 PM blood test results of back and they are within normal limits including patient's troponin. Chest x-rays within normal limit. I've ordered a CT abdomen pelvis with IV contrast. Patient has been taken to CT currently. Awaiting for the scan to be done and resulted. I medicated her for pain. 7:[address] scan is still pending.. The case will be signed over to the oncoming ER physician at this point. 7:[address] report just came back and does not show any acute findings. Patient will be discharged home. Procedures EKG Prior to Arrival: No Diagnosis Primary Impression: Left flank pain Additional Impression: Atypical chest pain Additional Instructions: Please return to the ER if the condition worsens or any other new concerns. Otherwise follow-up with your primary care. Med/Other Pt SpecificInfo: No Change to Meds Disposition: 01 DISCHARGE HOME Condition: Stable Madhavi Montalvo MD Feb 28, 2017 17:52
[2017-02-28] MEDS ORDERED: SODIUM CHLORIDE 0.9% FLUSH 10 ML FLUSH IVF PRN (18:00)
--- NOTE | 2017-02-28 18:03 | RADRPT ---
EXAM DATE/TIME: 02/28/2017 17:43 [facility] COMPARISON: No previous studies available for comparison. INDICATIONS : Chest pain, lower left anterior flank pain. MEDICAL HISTORY : Asthma. SURGICAL HISTORY : None. ENCOUNTER: Initial ACUITY: 1 day PAIN SCORE: 8/10 LOCATION: Bilateral chest FINDINGS: A single view of the chest demonstrates the lungs to be symmetrically aerated without evidence of mas s, infiltrate or effusion. The cardiomediastinal contours are unremarkable. Osseous structures are intact. CONCLUSION: 1. No acute cardiopulmonary disease. Reginald Rivera MD on February 28, 2017 at 18:01 Board Certified Radiologist. This report was verified electronically.
[2017-02-28 18:09] LABS: BASOPHIL % 0.7 % (0.0-2.0); EOSINOPHIL # 0.1 TH/MM3 (0-0.4); HEMATOCRIT 32.9 % (35.0-46.0); LYMPH % 22.1 % (9.0-44.0); LYMPHOCYTE # 1.3 TH/MM3 (1.0-4.8); MEAN CELL VOLUME 69.8 FL (80.0-100.0); MEAN CORPUSCULAR HEMOGLOBIN 21.5 PG (27.0-34.0); MEAN CORPUSCULAR HGB CONC 30.8 % (32.0-36.0); NEUT % 69.2 % (16.0-70.0); PLATELET COUNT 344 TH/MM3 (150-450); RED BLOOD COUNT 4.71 MIL/MM3 (4.00-5.30); RED CELL DISTRIBUTION WIDTH 16.2 % (11.6-17.2); WHITE BLOOD COUNT 5.8 TH/MM3 (4.0-11.0)
[2017-02-28 18:13] LABS: HEMO FLAGS AUTO DIFF
[2017-02-28 18:15] LABS: ANION GAP 10 MEQ/L (5-15); BICARBONATE 26.4 MEQ/L (21.0-32.0); BLOOD UREA NITROGEN 6 MG/DL (7-18); CHLORIDE 104 MEQ/L (98-107); GLOMERULAR FILTRATION RATE 116 ML/MIN (>89); MAGNESIUM 2.3 MG/DL (1.5-2.5); POTASSIUM 3.6 MEQ/L (3.5-5.1); SODIUM (NA) 140 MEQ/L (136-145)
[2017-02-28] MEDS ORDERED: KETOROLAC TROMETHAMINE 30 MG/ML (IVP) VIAL IV PUSH ONE (18:15)
[2017-02-28] MEDS ORDERED: ACETAMINOPHEN/HYDROcodone 325 MG/5 MG TAB PO ONE (18:15)
[2017-02-28 18:16] LABS: APTT (PATIENT) 24.7 SEC (24.3-30.1); INTERNATIONAL NORMALIZED RATIO 0.9 RATIO; PROTHROMBIN TIME - PATIENT 10.2 SEC (9.8-11.6)
[2017-02-28 18:26] LABS: CREATINE KINASE 80 U/L (26-192)
[2017-02-28] MEDS ORDERED: IOHEXOL 350 MG/ML 10 ML VIAL (for RAD DIAG) IV ONE (18:43)
[2017-02-28 18:55] LABS: OVALOCYTES 1+ (NORMAL)
[2017-02-28 18:56] LABS: SCAN/DIFF AUTO DIFF CONFIRMED
--- NOTE | 2017-02-28 19:28 | RADRPT ---
EXAM DATE/TIME: 02/28/2017 18:40 [facility] COMPARISON: CT ABDOMEN & PELVIS W/O CONTRAST, January 17, 2017, 20:36. INDICATIONS : Left flank and upper epigastric pain. IV CONTRAST: 100 cc Omnipaque 350 (iohexol) IV ORAL CONTRAST: No oral contrast ingested. RADIATION DOSE: 9.04 CTDIvol (mGy) MEDICAL HISTORY : Renal calculi. SURGICAL HISTORY : Gastric bypass. Cholecystectomy. ENCOUNTER: Initial ACUITY: 3 weeks PAIN SCALE: 6/10 LOCATION: Left flank and abdomen TECHNIQUE: Volumetric scanning of the abdomen and pelvis was performed. Using automated exposure control and ad justment of the mA and/or kV according to patient size, radiation dose was kept as low as reasonably achievable to obtain optimal diagnostic quality images. FINDINGS: LOWER LUNGS: The visualized lower lungs are clear. LIVER: There is a smooth margin low density lesion at the junction of left and right lobe anteriorly measuri ng 2.1 cm; this is similar in appearance to a prior noncontrast CT abdomen performed in December 2016 . No other space occupying lesions seen. Hemoclips in the border from prior cholecystectomy. SPLEEN: Normal size without lesion. PANCREAS: Within normal limits. KIDNEYS: Normal in size and shape. There is no mass, stone or hydronephrosis. Low-density lesion in the uppe r right kidney, probably representing a cyst, has similar features to the prior noncontrast study. ADRENAL GLANDS: Within normal limits. VASCULAR: There is no aortic aneurysm. BOWEL/MESENTERY: Evidence of prior bariatric surgery with presumed partial gastrectomy and [id number]. No focal abnorm ally seen about the anastomosis suture. No dilated loops of small or large bowel. No evidence of fr ee fluid. ABDOMINAL WALL: Small umbilical hernia stable from prior. RETROPERITONEUM: There is no lymphadenopathy. BLADDER: No wall thickening or mass. REPRODUCTIVE: Within normal limits. INGUINAL: There is no lymphadenopathy or hernia. MUSCULOSKELETAL: Within normal limits for patient age. CONCLUSION: No acute findings. Bishop Caputo MD on February 28, 2017 at 19:23 Board Certified Radiologist. This report was verified electronically.
--- NOTE | 2017-03-01 09:55 | EKG ---
Date Performed: 02/28/2017 Time Performed: 17:29:42 PTAGE: 41 years EKG: JUNCTIONAL RHYTHM ABNORMAL RHYTHM ECG NO PREVIOUS TRACING DOCTOR: Guicho Gao Interpretating Date/Time 03/01/2017 09:53:42
[2017-03-13] MEDS ORDERED: CLOT10TR PO (16:08)
[2017-03-21] MEDS ORDERED: FLUC200T2 PO (18:11)
[2017-03-22] MEDS ORDERED: PANT40TA3 PO (08:49)
[2017-03-26] MEDS ORDERED: GABA300C5 PO (14:35)
[2017-03-27] MEDS ORDERED: AMBI10TA PO (20:06)
[2017-04-13] MEDS ORDERED: SERT-132 PO (10:14)
[2017-04-13] MEDS ORDERED: TRAZ100T4 PO (10:16)
[2017-04-13] MEDS ORDERED: SPRI28TA PO (10:20)
[2017-04-26] MEDS ORDERED: AMBI10TA PO (10:57)
[2017-05-15] MEDS ORDERED: VENL37.5 PO (16:19)
[2017-05-15] MEDS ORDERED: ULTR50TA5 PO (16:19)
[2017-05-16] MEDS ORDERED: ADVA500A INH (08:34)
== END 2017-02-28 19:51 | disposition home or self-care (01) ==
LOC: NEPE 15:47
DX: R10.9 Unspecified abdominal pain (principal); R07.89 Other chest pain; Z98.84 Bariatric surgery status; Z79.899 Other long term (current) drug therapy
CPT/HCPCS: 71010; 74177; 80048; 82550; 83735; 84484; 85025; 85610; 85730; 93005; 96374; 99285; J1885; Q9967

== ENCOUNTER 2017-06-15 15:15 | Emergency (ER) | payer MEDICAID ==
[~2017-06-15] VITALS: Ht 160 cm; Wt 66.8 kg
[~2017-06-15 15:15] MED LIST changes: +CLOT10TR PO; +FLUC200T2 PO; +GABA300C5 PO; +IBUP800T23 PO; +SPRI28TA PO; +TRAZ100T4 PO; +TRAZ100T6 PO; +ULTR50TA5 PO; +VENL37.5 PO; +VENL75XR PO
[2017-06-15 15:19] VITALS: BP 138/81; PULSE 93; RESP 17; TEMP 98.7; O2SAT 100
[2017-06-15 15:38] LABS: BLOOD, URINE NEG (NEG); GLUCOSE,URINE NEG (NEG); KETONE, URINE NEG (NEG); NITRITE,URINE NEG (NEG); PH, URINE 7.5 (5.0-8.5)
[2017-06-15 15:42] LABS: URINE COLOR YELLOW (YELLW/STRAW)
[2017-06-15 15:44] LABS: MUCUS URINE MANY /lpf (OCC)
[2017-06-15 15:45] LABS: COMMENT (UR) CULT NOT INDICATED; CULTURE IF INDICATED CULT NOT INDICATED; RBC, URINE 0-3 /hpf (0-3); SQUAMOUS EPITHELIAL CELL URINE 0-5 /hpf (0-5); WBC, URINE 0-2 /hpf (0-5)
[2017-06-15] MEDS ORDERED: SODIUM CHLOR 0.9% 1000 ML INJ 1,000 ML IV SCH (15:57)
[2017-06-15] MEDS ORDERED: ONDANSETRON HCL 4 MG/2 ML VIAL IVP ONE (16:00)
[2017-06-15] MEDS ORDERED: SODIUM CHLORIDE 0.9% FLUSH 10 ML FLUSH IV FLUSH PRN (16:00)
[2017-06-15] MEDS ORDERED: MORPHINE SULFATE 4 MG/ML INJ IV PUSH ONE (16:00)
--- NOTE | 2017-06-15 16:02 | PD ---
HPI Chief Complaint: Flank/Kidney Pain Time Seen by Provider: 15:57 Travel History International Travel<30 days: No Contact w/Intl Traveler<30days: No Traveled to known affect area: No History of Present Illness HPI 41-year-old female with history of kidney stones, status post cholecystectomy, gastritis, asthma, presents to the ER today because she states that she has been having 3 days history of right flank pains or radiation to her right lower quadrant which she states is currently an 8 out of 10. She has been having dysuria, and also has noted she had some sore throat and plaques in her throat. She has been nauseous but has not been having diarrhea, vomiting, fevers, or any other symptoms. Modifying Factors: None Associated Signs & Symptoms: Right flank pain, urinary symptoms, sore throat Risk Factors: History of kidney stones PFSH Past Medical History Asthma: Yes Anxiety: Yes Diminished Hearing: No Headaches: Yes Kidney Stones: Yes Immunizations Current: Yes Shingles: Yes ?: Not LMP: 1 WEEK AGO : 3 Para: 2 Miscarriage: 1 Past Surgical History Abdominal Surgery: Yes (GASTRIC BYPASS) Cholecystectomy: Yes Other Surgery: Yes (KIDNEY STONES REMOVED X2) Social History Alcohol Use: No Tobacco Use: No Substance Use: No Allergies-Medications (Allergen,Severity, Reaction): Coded Allergies: Tramadol (Verified Allergy, Mild, Headache, 06/15/17) Reported Meds & Prescriptions Reported Meds & Active Scripts Active Trazodone (Trazodone HCl) 100 Mg Tablet 100 Mg PO HS Effexor XR 24 HR (Venlafaxine HCl) 75 Mg Cap 75 Mg PO DAILY Advair Diskus Inh (Fluticasone-Salmeterol Inh) 500-50 Mcg/Blist Aer 1 Puff INH BID Rinse mouth after use. Ambien (Zolpidem Tartrate) 10 Mg Tab 10 Mg PO HS PRN Gabapentin 300 Mg Cap 300 Mg PO TID Review of Systems Except as stated in HPI: all other systems reviewed are Neg Physical Exam Narrative GENERAL: Well-developed middle age white female patient who currently is in mild distress. Awake and oriented 3. SKIN: Focused skin assessment warm/dry. HEAD: Atraumatic. Normocephalic. EYES: Pupils equal and round. No scleral icterus. No injection or drainage. ENT: Mucosa pink and moist. Mild erythema with bilateral tonsillar plaques exudates. No uvular edema. No uvular, palatal, or tonsillar deviation. Airway patent. Nasal turbinates appear normal without nasal blood, purulent drainage or septal hematoma. NECK: Trachea midline. No JVD. CARDIOVASCULAR: Regular rate and rhythm. No murmur appreciated. RESPIRATORY: No accessory muscle use. Clear to auscultation. Breath sounds equal bilaterally. GASTROINTESTINAL: Abdomen soft, right lower quadrant tenderness without guarding or rebound, nondistended. Hepatic and splenic margins not palpable. GENITOURINARY: Normal external genitalia without lesions or erythema. Vaginal vault without blood but is notable for copious whitish greenish drainage. Cervical os was closed without drainage, but there is notable significant edema and erythema of the cervix with a pendulous inflammatory tissue from the cervix. Mild cervical motion tenderness. Uterus nontender and nonenlarged. Right adnexal tenderness. BACK: Mild right CVA tenderness. No rash. No point tenderness on palpation of the spine. MUSCULOSKELETAL: No obvious deformities. No clubbing. No cyanosis. No edema. NEUROLOGICAL: Awake and alert. No obvious cranial nerve deficits. Motor grossly within normal limits. Normal speech. PSYCHIATRIC: Appropriate mood and affect; insight and judgment normal. Data Data Last Documented VS Vital Signs Date Time Temp Pulse Resp B/P Pulse Ox O2 Delivery O2 Flow Rate FiO2 06/15/17 17:24 88 18 136/76 100 Room Air 06/15/17 15:19 98.7 Orders Urinalysis - C+S If Indicated (06/15/17 15:30) Complete Blood Count With Diff (06/15/17 15:57) Comprehensive Metabolic Panel (06/15/17 15:57) Ct Abd/Pel W/O Iv Contrast (06/15/17 15:57) Iv Access Insert/Monitor (06/15/17 15:57) Ecg Monitoring (06/15/17 15:57) Oximetry (06/15/17 15:57) Morphine Inj (Morphine Inj) (06/15/17 16:00) Ondansetron Inj (Zofran Inj) (06/15/17 16:00) Sodium Chlor 0.9% 1000 Ml Inj (Ns 1000 M (06/15/17 15:57) Sodium Chloride 0.9% Flush (Ns Flush) (06/15/17 16:00) Ed Urine Pregnancytest Poc (06/15/17 15:57) Group A Rapid Strep Screen (06/15/17 15:57) Strep Culture (Group A) (06/15/17 16:05) Gc And Chlamydia Pcr (06/15/17 17:29) Wet Prep Profile (06/15/17 17:29) Ceftriaxone Inj (Rocephin Inj) (06/15/17 17:30) Azithromycin Powd Pack (Zithromax Powd P (06/15/17 17:30) Acetamin-Hydrocod 325-5 Mg ([place] 5-325 (06/15/17 17:30) Metronidazole (Flagyl) (06/15/17 17:30) Metronidazole (Flagyl) (06/15/17 17:45) Labs Laboratory Tests Test 06/15/17 06/15/17 15:25 16:10 Urine Color YELLOW Urine Turbidity CLEAR Urine pH 7.5 Urine Specific [place] 1.017 Urine Protein TRACE mg/dL Urine Glucose (UA) NEG mg/dL Urine Ketones NEG mg/dL Urine Occult Blood NEG Urine Nitrite NEG Urine Bilirubin NEG Urine Leukocyte Esterase TRACE Urine RBC 0-3 /hpf Urine WBC 0-2 /hpf Urine Squamous Epithelial 0-5 /hpf Cells Urine Hyaline Casts 6-9 /lpf Urine Mucus MANY /lpf Microscopic Urinalysis Comment CULT NOT INDICATED White Blood Count 9.2 TH/MM3 Red Blood Count 4.33 MIL/MM3 Hemoglobin 9.2 GM/DL Hematocrit 29.7 % Mean Corpuscular Volume 68.6 FL Mean Corpuscular Hemoglobin 21.2 PG Mean Corpuscular Hemoglobin 30.8 % Concent Red Cell Distribution Width 14.8 % Platelet Count 281 TH/MM3 Mean Platelet Volume 8.0 FL Neutrophils (%) (Auto) 83.1 % Lymphocytes (%) (Auto) 7.5 % Monocytes (%) (Auto) 8.1 % Eosinophils (%) (Auto) 0.9 % Basophils (%) (Auto) 0.4 % Neutrophils # (Auto) 7.7 TH/MM3 Lymphocytes # (Auto) 0.7 TH/MM3 Monocytes # (Auto) 0.7 TH/MM3 Eosinophils # (Auto) 0.1 TH/MM3 Basophils # (Auto) 0.0 TH/MM3 CBC Comment AUTO DIFF Differential Comment AUTO DIFF CONFIRMED Ovalocytes 1+ Sodium Level 141 MEQ/L Potassium Level 3.7 MEQ/L Chloride Level 105 MEQ/L Carbon Dioxide Level 29.2 MEQ/L Anion Gap 7 MEQ/L Blood Urea Nitrogen 5 MG/DL Creatinine 0.55 MG/DL Estimat Glomerular Filtration 121 ML/MIN Rate Random Glucose 94 MG/DL Calcium Level 8.2 MG/DL Total Bilirubin 0.4 MG/DL Aspartate Amino Transf 19 U/L (AST/SGOT) Alanine Aminotransferase 20 U/L (ALT/SGPT) Alkaline Phosphatase 91 U/L Total Protein 7.4 GM/DL Albumin 3.3 GM/DL MDM Medical Decision Making Medical Screen Exam Complete: Yes Emergency Medical Condition: Yes Medical Record Reviewed: Yes Interpretation(s) Laboratory Tests Test 06/15/17 06/15/17 15:25 16:10 Urine Leukocyte Esterase TRACE (NEG) Urine Hyaline Casts 6-9 /lpf (RARE) Urine Mucus MANY /lpf (OCC) Hemoglobin 9.2 GM/DL (11.6-15.3) Hematocrit 29.7 % (35.0-46.0) Mean Corpuscular Volume 68.6 FL (80.0-100.0) Mean Corpuscular Hemoglobin 21.2 PG (27.0-34.0) Mean Corpuscular Hemoglobin 30.8 % Concent (32.0-36.0) Neutrophils (%) (Auto) 83.1 % (16.0-70.0) Lymphocytes (%) (Auto) 7.5 % (9.0-44.0) Monocytes (%) (Auto) 8.1 % (0.0-8.0) Lymphocytes # (Auto) 0.7 TH/MM3 (1.0-4.8) Ovalocytes 1+ (NORMAL) Blood Urea Nitrogen 5 MG/DL (7-18) Calcium Level 8.2 MG/DL (8.5-10.1) Albumin 3.3 GM/DL (3.4-5.0) Last 24 hours Impressions Abdomen/Pelvis CT 06/15/17 [id number] Draft Impressions: Service Date/Time: May 16:36 - CONCLUSION: 1. No radiopaque renal calculi or obstructive uropathy. 2. Normal appendix. 3. 1.5 cm right adnexal cystic mass, right ovarian cyst with trace free fluid in the pelvis. This may reflect a ruptured ovarian cyst. 4. Redemonstration of small fat-containing umbilical hernia, previous cholecystectomy and gastric bypass, and probable 12 mm right renal cyst. Ender Sheldon MD Differential Diagnosis Right flank and right lower quadrant pains, nausea, sore throatviral syndrome versus musculoskeletal versus renal colic versus on Monday/UTI Narrative Course CAT scan did not show any signs of kidney stones or other acute processes. It does show a right ovarian cyst that has been seen in previous study as well. Lab work shows no significant signs of UTI. Pelvic exam is concerning for possible underlying cervicitis. At this point, my plan would be to treat her for possible underlying pelvic infection. Cultures have been drawn. Throat testing did not show any signs of strep infection. My plan would be to treat her with antibiotics at this point for possible underlying pelvic infection and I suspect that this would treat any type of strep or throat infection as well. Pelvic exam shows abnormal erythema and inflammatory pendulous tissue which would also need to be evaluated further with COMPLIANCE TESTER. My plan would be to have her follow-up with COMPLIANCE TESTER regarding this current issue. Return for any worsening in pain or new symptoms as needed. The plan has been discussed with the patient and she states understanding. Diagnosis Primary Impression: Cervicitis Additional Impression: Right flank pain Med/Other Pt SpecificInfo: Prescription(s) given Scripts Ibuprofen (Motrin Ib)200 Mg [id number] Mg PO QID PRN (PAIN SCALE 1 TO 10) #20 Prov:Mckenzie Reyna MD 06/15/17 Metronidazole (Flagyl)500 Mg [id number] Mg PO TID 14 Days Ref 0 Prov:Mckenzie Reyna MD 06/15/17 Doxycycline Hyclate 100 Mg [id number] Mg PO BID #28 CAP Ref 0 Prov:Mckenzie Reyna MD 06/15/17 Disposition: 01 DISCHARGE HOME Condition: Stable Mckenzie Reyna MD Jun 15, 2017 16:02
[2017-06-15 16:19] VITALS: BP 119/78; PULSE 80; RESP 18; O2SAT 100
[2017-06-15 16:29] LABS: AUTOMATED NEUTROPHIL # 7.7 TH/MM3 (1.8-7.7); BASOPHIL % 0.4 % (0.0-2.0); EOSINOPHIL # 0.1 TH/MM3 (0-0.4); EOSINOPHIL % 0.9 % (0.0-4.0); HEMATOCRIT 29.7 % (35.0-46.0); LYMPH % 7.5 % (9.0-44.0); LYMPHOCYTE # 0.7 TH/MM3 (1.0-4.8); MEAN CELL VOLUME 68.6 FL (80.0-100.0); MEAN CORPUSCULAR HEMOGLOBIN 21.2 PG (27.0-34.0); MEAN CORPUSCULAR HGB CONC 30.8 % (32.0-36.0); MONO % 8.1 % (0.0-8.0); NEUT % 83.1 % (16.0-70.0); PLATELET COUNT 281 TH/MM3 (150-450); RED BLOOD COUNT 4.33 MIL/MM3 (4.00-5.30); RED CELL DISTRIBUTION WIDTH 14.8 % (11.6-17.2); WHITE BLOOD COUNT 9.2 TH/MM3 (4.0-11.0)
[2017-06-15 16:34] LABS: HEMO FLAGS AUTO DIFF
[2017-06-15 16:36] LABS: CHLORIDE 105 MEQ/L (98-107); POTASSIUM 3.7 MEQ/L (3.5-5.1); SODIUM (NA) 141 MEQ/L (136-145)
[2017-06-15 16:40] LABS: ANION GAP 7 MEQ/L (5-15); BICARBONATE 29.2 MEQ/L (21.0-32.0); BLOOD UREA NITROGEN 5 MG/DL (7-18)
[2017-06-15 16:43] LABS: ALT (GPT) 20 U/L (10-53); AST (GOT) 19 U/L (15-37); GLOMERULAR FILTRATION RATE 121 ML/MIN (>89)
[2017-06-15 16:44] LABS: TOTAL BILIRUBIN ADULT 0.4 MG/DL (0.2-1.0)
[2017-06-15 16:46] LABS: ALKALINE PHOSPHATASE 91 U/L (45-117)
[2017-06-15 17:00] LABS: OVALOCYTES 1+ (NORMAL); SCAN/DIFF AUTO DIFF CONFIRMED
--- NOTE | 2017-06-15 17:05 | RADRPT ---
EXAM DATE/TIME: 06/15/2017 16:36 [facility] COMPARISON: CT ABDOMEN & PELVIS W/O CONTRAST, January 17, 2017, 20:36. INDICATIONS : Right flank pain. ORAL CONTRAST: No oral contrast ingested. RADIATION DOSE: 13.66 CTDIvol (mGy) MEDICAL HISTORY : Renal calculi. SURGICAL HISTORY : Cholecystectomy. Gastric bypass. ENCOUNTER: Initial ACUITY: 3 days PAIN SCALE: 8/10 LOCATION: Right flank TECHNIQUE: Volumetric scanning of the abdomen and pelvis was performed. Using automated exposure control and ad justment of the mA and/or kV according to patient size, radiation dose was kept as low as reasonably achievable to obtain optimal diagnostic quality images. DICOM format image data is available electro nically for review and comparison. FINDINGS: LOWER LUNGS: The visualized lower lungs are clear. LIVER: Ill-defined hypodensity along the falciform ligament consistent with focal fatty infiltration. Visual ized portions of the liver otherwise unremarkable. Gallbladder is surgically absent. SPLEEN: Visualized portions are unremarkable. PANCREAS: Within normal limits. KIDNEYS: Normal in size and shape. Ill-defined 1.2 cm hypodensity corresponds to abnormality on prior exam an d likely reflects a small cyst. There is no mass, stone, or hydronephrosis. ADRENAL GLANDS: Within normal limits. VASCULAR: There is no aortic aneurysm. BOWEL/MESENTERY: Postsurgical features of prior gastric bypass. The small bowel, and colon demonstrate no acute abnorm ality. There is no free intraperitoneal air or fluid. The appendix is visualized and normal in appea kat. ABDOMINAL WALL: Redemonstration of a small fat-containing periumbilical hernia unchanged from prior exam. RETROPERITONEUM: Subcentimeter retroperitoneal lymph nodes do not meet CT size criteria and are unchanged from prior e xam. BLADDER: No wall thickening or mass. REPRODUCTIVE: 1.5 x 1.3 cm hypodense cystic right adnexal mass is likely ovarian in etiology. Uterus is unremarkabl e. Trace free fluid in the pelvis is likely physiologic. INGUINAL: There is no lymphadenopathy or hernia. MUSCULOSKELETAL: Within normal limits for patient age. CONCLUSION: 1. No radiopaque renal calculi or obstructive uropathy. 2. Normal appendix. 3. 1.5 cm right adnexal cystic mass, right ovarian cyst with trace free fluid in the pelvis. This may reflect a ruptured ovarian cyst. 4. Redemonstration of small fat-containing umbilical hernia, previous cholecystectomy and gastric byp ass, and probable 12 mm right renal cyst. Ender Sheldon MD on June 15, 2017 at 16:55 Board Certified Radiologist. This report was verified electronically.
[2017-06-15 17:24] VITALS: BP 136/76; PULSE 88; RESP 18; O2SAT 100
[2017-06-15] MEDS ORDERED: metroNIDAZOLE 500 MG TAB PO ONE ×2 (17:30→17:45)
[2017-06-15] MEDS ORDERED: cefTRIAXone INJ 250 MG in SODIUM CHLORIDE 0.9% INJ 100 ML IV ONE (17:30)
[2017-06-15] MEDS ORDERED: ACETAMINOPHEN/HYDROcodone 325 MG/5 MG TAB PO ONE (17:30)
[2017-06-15] MEDS ORDERED: AZITHROMYCIN PWD FOR SUSP 1 GM PACKET PO ONE (17:30)
[2017-06-15] MEDS ORDERED: METR-1 PO (17:38)
[2017-06-15] MEDS ORDERED: DOXY100C PO (17:38)
[2017-06-15] MEDS ORDERED: IBUP-1129 PO (17:38)
[2017-06-15 18:44] VITALS: RESP 15
[2017-06-15 21:59] LABS: CHLAMYDIA PCR NOT DETECTED (NOT DETECT); NEISSERIA PCR NOT DETECTED (NOT DETECT)
[2017-06-16] MEDS ORDERED: MELO-1 PO (16:26)
[2017-06-16] MEDS ORDERED: DICL1GEL3 TOPICAL (16:28)
[2017-06-16] MEDS ORDERED: TRAM50TA PO (16:57)
[2017-06-19] MEDS ORDERED: ADVA500A INH (13:14)
[2017-06-21] MEDS ORDERED: GABA300C5 PO (09:03)
== END 2017-06-15 18:45 | disposition home or self-care (01) ==
LOC: PHED 15:15
DX: N72 Inflammatory disease of cervix uteri (principal); R10.31 Right lower quadrant pain; Z87.442 Personal history of urinary calculi; Z98.84 Bariatric surgery status
CPT/HCPCS: 74176; 80053; 81001; 84703; 85025; 87081; 87210; 87491; 87591; 87880; 96361; 96365; 96375; 99285; J0696; J2270; J2405; J7030

== ENCOUNTER 2017-10-10 15:11 | Emergency (ER) | payer MEDICAID ==
[~2017-10-10] VITALS: Ht 160 cm; Wt 68.7 kg
[~2017-10-10 15:11] MED LIST changes: -ALBU.5I NEB; -AMBI5TAB PO; +ARIP1TAB12 PO; -CLOT10TR PO; -DEPO150I IM; +DICL1GEL3 TOPICAL; +DOXY100C PO; -FLUC200T2 PO; +FLUT1SPR5 EACH NARE; -HYDR-3516 PO; +IBUP-1129 PO; -IBUP800T23 PO; -MACR100C2 PO; +MELO15TA20 PO; +METR-1 PO; -NORC5TAB PO; -PANT40TA3 PO; -SPRI28TA PO; +TRAM50TA PO; +TRAZ100T10 PO; -TRAZ100T4 PO; -TRAZ100T6 PO; -ULTR50TA5 PO; -VENL37.5 PO; -VENTAER INH; -ZOFR8TAB4 SL
[2017-10-10 15:28] VITALS: BP 128/76; PULSE 77; RESP 18; TEMP 98.3; O2SAT 100
[2017-10-10] MEDS ORDERED: SODIUM CHLORIDE 0.9% FLUSH 10 ML FLUSH IVF PRN (16:15)
--- NOTE | 2017-10-10 16:17 | PD ---
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 Patient reports that one month ago, she was seen by Dr. [place]ron[place], her family practitioner, and had a Pap smear performed at that time. She reports that she was told that she had a polyp that needed to be removed, no appointment for postal worker was set up at that time. Patient reports that over the past 2 days , she has noticed a yellow to bloody discharge with increased pelvic pain. Patient reports that she is sexually active, reports that sometimes she does not use any contraceptives. She denies history of STDs in the past. Patient denies any fevers or chills, denies any abdominal pain, denies any nausea or vomiting. Patient reports that she last had her menstrual cycle 1.5 weeks ago. PFSH Past Medical History Asthma: Yes Anxiety: Yes Depression: Yes Diminished Hearing: No Headaches: Yes Kidney Stones: Yes Immunizations Current: Yes Shingles: Yes Tetanus Vaccination: > 5 Years Influenza Vaccination: Yes ?: Not : 3 Para: 2 Miscarriage: 1 Past Surgical History Abdominal Surgery: Yes (GASTRIC BYPASS) Cholecystectomy: Yes Other Surgery: Yes (KIDNEY STONES REMOVED X2) Social History Alcohol Use: Yes (OCC) Tobacco Use: No Substance Use: No Allergies-Medications (Allergen,Severity, Reaction): Coded Allergies: No Known Allergies (Unverified Adverse Reaction, Unknown, 10/10/17) Reported Meds & Prescriptions Reported Meds & Active Scripts Active Macrobid (Nitrofurantoin Monoh/Nitrofur Macro) 100 Mg Cap 100 Mg PO BID 10 Days Ambien (Zolpidem Tartrate) 10 Mg Tab 10 Mg PO HS PRN Advair Diskus Inh (Fluticasone-Salmeterol Inh) 500-50 Mcg/Blist Aer 1 Puff INH BID Rinse mouth after use. Trazodone (Trazodone HCl) 100 Mg Tablet 100 Mg PO HS Effexor XR 24 HR (Venlafaxine HCl) 75 Mg Cap 75 Mg PO DAILY Review of Systems General / Constitutional: No: Fever Eyes: No: Visual changes HENT: No: Headaches Cardiovascular: No: Chest Pain or Discomfort Respiratory: No: Shortness of Breath Gastrointestinal: No: Nausea, Abdominal Pain Genitourinary: Positive: Pelvic Pain, Discharge, Vaginal Bleeding, No: Urgency , Frequency, Dysuria Musculoskeletal: No: Pain Skin: No Rash Neurologic: No: Weakness Psychiatric: No: Depression Endocrine: No: Polydipsia Hematologic/Lymphatic: No: Easy Bruising Physical Exam Narrative GENERAL: Mild distress SKIN: Focused skin assessment warm/dry. HEAD: Atraumatic. Normocephalic. EYES: Pupils equal and round. No scleral icterus. No injection or drainage. ENT: No nasal bleeding or discharge. Mucous membranes pink and moist. NECK: Trachea midline. No JVD. CARDIOVASCULAR: Regular rate and rhythm. No murmur appreciated. RESPIRATORY: No accessory muscle use. Clear to auscultation. Breath sounds equal bilaterally. GASTROINTESTINAL: Abdomen soft, non-tender, nondistended. Hepatic and splenic margins not palpable. PELVIC: Pelvic exam performed with RN at bedside, patient with thick yellow discharge with specks of bright bed blood, cervix appears irritated, no cmt or adnexal tenderness MUSCULOSKELETAL: No obvious deformities. No clubbing. No cyanosis. No edema. NEUROLOGICAL: Awake and alert. No obvious cranial nerve deficits. Motor grossly within normal limits. Normal speech. PSYCHIATRIC: Appropriate mood and affect; insight and judgment normal. Data Data Last Documented VS Vital Signs Date Time Temp Pulse Resp B/P (MAP) Pulse Ox O2 Delivery O2 Flow Rate FiO2 10/10/17 15:28 98.3 77 18 128/76 (93) 100 Orders Orders Urinalysis - C+S If Indicated (10/10/17 16:03) Ed Urine Pregnancytest Poc (10/10/17 16:03) Complete Blood Count With Diff (10/10/17 16:11) Basic Metabolic Panel (Bmp) (10/10/17 16:11) Gc And Chlamydia Pcr (10/10/17 16:11) Wet Prep Profile (10/10/17 16:11) Iv Access Insert/Monitor (10/10/17 16:11) Sodium Chloride 0.9% Flush (Ns Flush) (10/10/17 16:15) Azithromycin Powd Pack (Zithromax Powd P (10/10/17 16:45) Ceftriaxone Inj (Rocephin Inj) (10/10/17 16:45) Urine Culture (10/10/17 16:05) Ed Discharge Order (10/10/17 17:38) Labs Laboratory Tests Test 10/10/17 16:05 10/10/17 16:25 10/10/17 16:40 Urine Color STRAW Urine Turbidity SLIGHT Urine pH 6.0 Urine Specific [place] 1.003 Urine Protein NEG mg/dL Urine Glucose (UA) NEG mg/dL Urine Ketones NEG mg/dL Urine Occult Blood LARGE Urine Nitrite NEG Urine Bilirubin NEG Urine Leukocyte Esterase MOD Urine RBC 0-3 /hpf Urine WBC 15-19 /hpf Urine WBC Clumps FEW Urine Squamous Epithelial Cells 6-8 /hpf Microscopic Urinalysis Comment CULTURE INDICATED White Blood Count 7.0 TH/MM3 Red Blood Count 3.71 MIL/MM3 Hemoglobin 7.6 GM/DL Hematocrit 24.3 % Mean Corpuscular Volume 65.6 FL Mean Corpuscular Hemoglobin 20.5 PG Mean Corpuscular Hemoglobin Concent 31.3 % Red Cell Distribution Width 15.9 % Platelet Count 325 TH/MM3 Mean Platelet Volume 7.8 FL Neutrophils (%) (Auto) 62.1 % Lymphocytes (%) (Auto) 25.8 % Monocytes (%) (Auto) 8.2 % Eosinophils (%) (Auto) 2.8 % Basophils (%) (Auto) 1.1 % Neutrophils # (Auto) 4.3 TH/MM3 Lymphocytes # (Auto) 1.8 TH/MM3 Monocytes # (Auto) 0.6 TH/MM3 Eosinophils # (Auto) 0.2 TH/MM3 Basophils # (Auto) 0.1 TH/MM3 CBC Comment AUTO DIFF Blood Urea Nitrogen 6 MG/DL Creatinine 0.54 MG/DL Random Glucose 89 MG/DL Calcium Level 8.0 MG/DL Sodium Level 139 MEQ/L Potassium Level 3.7 MEQ/L Chloride Level 104 MEQ/L Carbon Dioxide Level 26.7 MEQ/L Anion Gap 8 MEQ/L Estimat Glomerular Filtration Rate 124 ML/MIN Clue Cells (Wet Prep) NONE SEEN Vaginal Trichomonas (Wet Prep) NONE SEEN Vaginal Yeast (Wet Prep) NONE SEEN MDM Medical Decision Making Medical Screen Exam Complete: Yes Emergency Medical Condition: Yes Medical Record Reviewed: Yes Interpretation(s) Vital Signs Date Time Temp Pulse Resp B/P (MAP) Pulse Ox O2 Delivery O2 Flow Rate FiO2 10/10/17 15:28 98.3 77 18 128/76 (93) 100 Urine test is negative Differential Diagnosis Cervicitis, , polyp, uti Narrative Course During the course of the patients emergency department visit, the patients history, examination, and differential diagnosis were reviewed with the patient. The patient was placed on a slab polisher with oximetry and frequent blood pressure monitoring. The patient had a 20-gauge IV access obtained and blood work sent for analysis. The patient was initially provided with IV Rocephin as well as by mouth azithromycin for treatment of possible cervicitis The patients laboratory studies were reviewed and remarkable for: CBC & BMP Diagram 10/10/17 16:25 Calcium Level 8.0 L Patient understands importance of following up with cultures from today, understands that if cultures are positive in all sexual partners will need to be treated. Patient also understands need to follow-up with postal worker as soon as possible for further workup abnormal vaginal bleeding. She will return to the ER if symptoms worsen or progress. I reviewed all lab work as well as ALL FINDINGS WITH PATIENT IN DETAIL. A COPY OF HER STUDIES WILL BE GIVEN TO HER AT DISCHARGE. Diagnosis Primary Impression: Cervicitis Additional Impressions: [place] UTI (urinary tract infection) Patient Instructions: General Instructions Additional Instructions: Please provide patient with a copy of their lab work and studies at discharge* * Please follow up with your primary care doctor in 2-3 days Return to the ER if symptoms worsen or progress Return to the ER as needed Please follow-up with all cultures from today, if cultures are positive, then all sexual partners will need to be treated Please follow-up with a postal worker as soon as possible Med/Other Pt SpecificInfo: Prescription(s) given Scripts Nitrofurantoin Monohydrate Macrocrystals (Macrobid) 100 Mg Cap 100 MG PO BID for Infection for 10 Days, #20 CAP 0 Refills Prov: Juana Menchaca DO 10/10/17 Disposition: 01 DISCHARGE HOME Condition: Stable Juana Menchaca DO Oct 10, 2017 16:17
[2017-10-10 16:31] LABS: BLOOD, URINE LARGE (NEG); GLUCOSE,URINE NEG (NEG); KETONE, URINE NEG (NEG); NITRITE,URINE NEG (NEG)
[2017-10-10 16:34] LABS: AUTOMATED NEUTROPHIL # 4.3 TH/MM3 (1.8-7.7); BASOPHIL # 0.1 TH/MM3 (0-0.2); BASOPHIL % 1.1 % (0.0-2.0); EOSINOPHIL # 0.2 TH/MM3 (0-0.4); EOSINOPHIL % 2.8 % (0.0-4.0); HEMATOCRIT 24.3 % (35.0-46.0); LYMPH % 25.8 % (9.0-44.0); LYMPHOCYTE # 1.8 TH/MM3 (1.0-4.8); MEAN CELL VOLUME 65.6 FL (80.0-100.0); MEAN CORPUSCULAR HEMOGLOBIN 20.5 PG (27.0-34.0); MEAN CORPUSCULAR HGB CONC 31.3 % (32.0-36.0); MONO % 8.2 % (0.0-8.0); NEUT % 62.1 % (16.0-70.0); PLATELET COUNT 325 TH/MM3 (150-450); RED BLOOD COUNT 3.71 MIL/MM3 (4.00-5.30); RED CELL DISTRIBUTION WIDTH 15.9 % (11.6-17.2)
[2017-10-10 16:41] LABS: HEMO FLAGS AUTO DIFF
[2017-10-10] MEDS ORDERED: cefTRIAXone INJ 1,000 MG in SODIUM CHLORIDE 0.9% INJ 100 ML IV ONE (16:45)
[2017-10-10] MEDS ORDERED: AZITHROMYCIN PWD FOR SUSP 1 GM PACKET PO ONE (16:45)
[2017-10-10 16:46] LABS: POTASSIUM 3.7 MEQ/L (3.5-5.1)
[2017-10-10 16:49] LABS: BICARBONATE 26.7 MEQ/L (21.0-32.0)
[2017-10-10 17:05] LABS: URINE COLOR STRAW (YELLW/STRAW)
[2017-10-10 17:06] LABS: COMMENT (UR) CULTURE INDICATED; CULTURE IF INDICATED CULTURE INDICATED; RBC, URINE 0-3 /hpf (0-3); WBC, URINE 15-19 /hpf (0-5)
[2017-10-10] MEDS ORDERED: MACR100C2 PO (17:32)
[2017-10-10 17:39] LABS: OVALOCYTES 2+ (NORMAL)
[2017-10-10 17:40] LABS: SCAN/DIFF AUTO DIFF CONFIRMED
[2017-10-10 17:49] VITALS: BP 126/81; PULSE 69; RESP 16; O2SAT 100
[2017-10-10 23:39] LABS: CHLAMYDIA PCR DETECTED (NOT DETECT); NEISSERIA PCR NOT DETECTED (NOT DETECT)
[2017-10-13] MEDS ORDERED: DEPO150I IM (10:55)
[2017-10-13] MEDS ORDERED: AZIT500T2 PO (12:38)
[2017-10-17] MEDS ORDERED: TRAZ100T10 PO (09:14)
== END 2017-10-10 18:26 | disposition home or self-care (01) ==
LOC: PHED 15:11
DX: N72 Inflammatory disease of cervix uteri (principal); N39.0 Urinary tract infection, site not specified
CPT/HCPCS: 80048; 81001; 84703; 85025; 87086; 87210; 87491; 87591; 96365; 99284; J0696

== ENCOUNTER → 2018-02-15 | Day surgery (SDC) | payer MEDICAID ==
--- NOTE | 2018-02-14 11:32 | TH ---
cc: Tai Edwards MD DATE: 02/15/2018 REASON FOR ADMISSION: This patient is a 42-year-old white female. She is a 3, para 2 who is being admitted to [facility] for treatment of an endometrial polyp. HISTORY OF PRESENT ILLNESS: The patient recently was seen in our practice and evaluation on pelvic exam revealed a large 6-cm polyp emanating from the endocervix or endometrium. We discussed treatment and this included removal of the polyp under general anesthesia. The risks of anesthesia and infection were discussed at length. PAST MEDICAL HISTORY: The patient's medical history is significant that she has a history of: 1. Nerve damage from shingles. 2. Chlamydia infection in 2017. 3. Iron deficiency anemia. MEDICATIONS: She is presently on: 1. Gabapentin 300 mg. 2. She is also on trazodone, notes she takes 100 mg at night. 3. Venlafaxine ER 150 mg which she takes for a depressive disorder. 2. Zolpidem 10 mg for sleep at night. SOCIAL HISTORY: Significant that she is a nonsmoker, nondrinker. SURGICAL HISTORY: Negative. REVIEW OF SYSTEMS: Essentially noncontributory. PHYSICAL EXAMINATION: GENERAL: The patient was seen well-developed, well-nourished, in no acute distress. VITAL SIGNS: Blood pressure was 112/70, pulse 70, respirations 12. HEENT: Negative. CHEST: Clear to auscultation. CARDIOVASCULAR: Revealed regular rate. ABDOMEN: Soft. No masses palpable. PELVIC EXAMINATION: There was a large polyp emanating from the endocervix. The uterus is of normal size. There are no adnexal masses palpable. EXTREMITIES: Reveal no cyanosis, clubbing, or edema. NEUROPSYCHIATRIC: The patient oriented x3 and showed no gross neurocranial deficit. IMPRESSION ON ADMISSION: Large cervical polyp. PLAN: Removal. MD YAHIR Baez/MARCELL , 10:57 AM , 11:30 AM
[~2018-02-15] MED LIST changes: -ARIP1TAB12 PO; -DICL1GEL3 TOPICAL; +DOCU100C15 PO; -DOXY100C PO; -FLUT1SPR5 EACH NARE; +HYDR-3516 PO; -IBUP-1129 PO; +KETOROLAC TROMETHAMINE 30 MG/ML (IVP) VIAL IV PUSH ONE; +LACTATED RINGER'S 1000 ML INJ 1,000 ML ONE; -MELO15TA20 PO; -METR-1 PO; +MIDAZOLAM HCL 2 MG/2 ML VIAL ONE; +ONDANSETRON HCL 4 MG/2 ML VIAL IV PUSH ONE; +PROPOFOL 200 MG/20 ML AMP IV ONE; -TRAM50TA PO; +ceFAZolin 2 GM PREMIX 50 ML ONE
--- NOTE | 2018-02-15 08:34 | MP ---
cc: Tai Edwards MD DATE OF OPERATION: 02/15/2018 PREOPERATIVE DIAGNOSIS: Cervical polyp. POSTOPERATIVE DIAGNOSIS: Cervical polyp. OPERATION: Cervical polypectomy. SURGEON: Tai Edwards MD ANESTHESIA: General. ESTIMATED BLOOD LOSS: Minimal. FINDINGS: Consistent with a large cervical polyp approximately 6 cm. DETAILS OF PROCEDURE: The patient was prepped and draped in the dorsal lithotomy position. A weighted speculum was placed in the posterior vaginal vault. The anterior lip of the cervix was grasped with a single-tooth tenaculum. After the anterior lip of the cervix was grasped, it became evident that the large polypoid tissue was emanating from the cervix and a Bovie instrument was used to cut the base of the polyp, after which a [id number] suture of 0 Vicryl was used for further hemostasis. After good hemostasis was noted tenaculum and speculum were removed and the patient returned to the recovery room in stable condition. Tai Edwards MD JSG/TL , 08:16 AM , 08:32 AM
== END | disposition home or self-care (01) ==
LOC: ESDC 06:51
PROVIDERS: ATTEND Obstetrics & Gynecology
DX: N84.1 Polyp of cervix uteri (principal)
CPT/HCPCS: 00940; 57500; 88305; J0690; J1885; J2250; J2405; J3010; J7120

== ENCOUNTER 2018-02-26 13:37 | Emergency (ER) | payer MEDICAID ==
[~2018-02-26] VITALS: Ht 160 cm; Wt 72.0 kg
[~2018-02-26 13:37] MED LIST changes: -KETOROLAC TROMETHAMINE 30 MG/ML (IVP) VIAL IV PUSH ONE; -LACTATED RINGER'S 1000 ML INJ 1,000 ML ONE; -MIDAZOLAM HCL 2 MG/2 ML VIAL ONE; -ONDANSETRON HCL 4 MG/2 ML VIAL IV PUSH ONE; -PROPOFOL 200 MG/20 ML AMP IV ONE; -ceFAZolin 2 GM PREMIX 50 ML ONE
[2018-02-26 13:39] VITALS: BP 184/92; PULSE 132; RESP 18; TEMP 99.1; O2SAT 99
[2018-02-26] MEDS ORDERED: CLIN300C5 PO (13:55)
[2018-02-26] MEDS ORDERED: IBUP-232 PO (14:31)
[2018-02-26] MEDS ORDERED: TYLETAB34 PO (14:31)
--- NOTE | 2018-02-26 14:33 | PD ---
HPI Chief Complaint: Oral / Dental Pain or Problem Time Seen by Provider: 14:19 Travel History International Travel<30 days: No Contact w/Intl Traveler<30days: No Traveled to known affect area: No History of Present Illness HPI 42-year-old female complaints of left lower gum pain dental pain. Patient states that she has sharp pain to the area for the past 3 weeks. Patient was seen by a dentist recently. Patient was put on clindamycin. Patient states that she had sharp persistent pain in the left lower gum area. Patient denies any fever chills. PFSH Past Medical History Asthma: Yes Anxiety: Yes Depression: Yes Diminished Hearing: No Headaches: Yes Kidney Stones: Yes Immunizations Current: Yes Shingles: Yes Influenza Vaccination: Yes ?: Not LMP: NOVEMBER 2017 : 3 Para: 2 Miscarriage: 1 Past Surgical History Abdominal Surgery: Yes (GASTRIC BYPASS) Cholecystectomy: Yes Other Surgery: Yes (KIDNEY STONES REMOVED X2) Social History Alcohol Use: Yes (OCC) Tobacco Use: No Substance Use: No Allergies-Medications (Allergen,Severity, Reaction): Coded Allergies: No Known Allergies (Unverified Adverse Reaction, Unknown, 02/26/18) Reported Meds & Prescriptions Reported Meds & Active Scripts Active Advair Diskus Inh (Fluticasone-Salmeterol Inh) 500-50 Mcg/Blist Aer 1 Puff INH BID Rinse mouth after use. Gabapentin 300 Mg Cap 300 Mg PO TID Docusate Sodium 100 Mg Cap 100 Mg PO BID Effexor XR 24 HR (Venlafaxine HCl) 75 Mg Cap 75 Mg PO DAILY Reported Clindamycin (Clindamycin HCl) 300 Mg Cap 300 Mg PO Q6H Review of Systems General / Constitutional: No: Fever Eyes: No: Visual changes HENT: No: Headaches Cardiovascular: No: Chest Pain or Discomfort Respiratory: No: Shortness of Breath Gastrointestinal: No: Abdominal Pain Genitourinary: No: Dysuria Musculoskeletal: No: Pain Skin: No Rash Neurologic: No: Weakness Psychiatric: No: Depression Endocrine: No: Polydipsia Hematologic/Lymphatic: No: Easy Bruising Physical Exam Narrative GENERAL: Well-nourished, well-developed patient. SKIN: Focused skin assessment warm/dry. HEAD: Normocephalic. EYES: No scleral icterus. No injection or drainage. NECK: Supple, trachea midline. No JVD or lymphadenopathy. CARDIOVASCULAR: Regular rate and rhythm without murmurs, gallops, or rubs. RESPIRATORY: Breath sounds equal bilaterally. No accessory muscle use. GASTROINTESTINAL: Abdomen soft, non-tender, nondistended. MUSCULOSKELETAL: No cyanosis, or edema. BACK: Nontender without obvious deformity. No CVA tenderness. Patient has dental caries left lower gum area. No soft tissue swelling noted. Data Data Last Documented VS Vital Signs Date Time Temp Pulse Resp B/P (MAP) Pulse Ox O2 Delivery O2 Flow Rate FiO2 02/26/18 13:39 99.1 132 18 184/92 (122) 99 MDM Medical Decision Making Medical Screen Exam Complete: Yes Emergency Medical Condition: Yes Differential Diagnosis Differential diagnoses including dental pain, dental abscess. Narrative Course 42-year-old female with dental pain. Diagnosis Primary Impression: Pain, dental Patient Instructions: General Instructions Additional Instructions: Continue with clindamycin as directed. Take medications as directed. Follow- up with a dentist. Med/Other Pt SpecificInfo: Prescription(s) given Scripts Ibuprofen (Ibuprofen) 600 Mg Tab 600 MG PO TID for Pain, #60 TAB 0 Refills Prov: Riley Flower MD 02/26/18 Acetaminophen-Codeine (Tylenol-Codeine #3) 300-30 mg Tab 1 TAB PO Q6H Y for PAIN, #12 TAB 0 Refills Prov: Riley Flower MD 02/26/18 Disposition: 01 DISCHARGE HOME Condition: Stable Riley Flower MD Feb 26, 2018 14:33
== END 2018-02-26 15:06 | disposition home or self-care (01) ==
LOC: PHED 13:37
DX: K08.89 Other specified disorders of teeth and supporting structures (principal); J45.909 Unspecified asthma, uncomplicated; F41.9 Anxiety disorder, unspecified; F32.9 Major depressive disorder, single episode, unspecified; Z98.84 Bariatric surgery status
CPT/HCPCS: 99282

== ENCOUNTER 2018-04-24 18:24 | Emergency (ER) | payer MEDICAID ==
[~2018-04-24] VITALS: Ht 160 cm; Wt 65.0 kg
[~2018-04-24 18:24] MED LIST changes: -AMBI10TA PO; +CLIN300C5 PO; -HYDR-3516 PO; +IBUP-232 PO; -TRAZ100T10 PO; +TYLETAB34 PO
[2018-04-24 19:11] VITALS: BP 147/84; PULSE 77; RESP 19; TEMP 98.7; O2SAT 100
--- NOTE | 2018-04-24 19:24 | PD ---
HPI Chief Complaint: Oral / Dental Pain or Problem Time Seen by Provider: 19:16 Travel History International Travel<30 days: No Contact w/Intl Traveler<30days: No Traveled to known affect area: No History of Present Illness HPI 42-year-old with ongoing periodontal disease and dental pain in the left lower jawline presents emergency department with ongoing pain and sensitivity. Patient is scheduled to have her teeth pulled next Monday. Patient states she recently finished clindamycin about a week ago with the pain is returned. She has been taking [id number] ibuprofen and Tylenol without much relief. She has sensitivity to hot and cold. She has no significant fever, chills, or other symptoms. Pain is 9 out of 10 and worse with hot and cold exposure. Patient has no known drug allergies PFSH Past Medical History Asthma: Yes Anxiety: Yes Depression: Yes Diminished Hearing: No Headaches: Yes Kidney Stones: Yes Immunizations Current: Yes Shingles: Yes ?: Not LMP: 12/06/17 : 3 Para: 2 Miscarriage: 1 Past Surgical History Abdominal Surgery: Yes (GASTRIC BYPASS) Cholecystectomy: Yes Other Surgery: Yes (KIDNEY STONES REMOVED X2) Social History Alcohol Use: Yes (OCC) Tobacco Use: No Substance Use: No Allergies-Medications (Allergen,Severity, Reaction): Coded Allergies: No Known Allergies (Unverified Adverse Reaction, Unknown, 02/26/18) Reported Meds & Prescriptions Reported Meds & Active Scripts Active Ibuprofen 600 Mg Tab 600 Mg PO TID Tylenol-Codeine #3 (Acetaminophen-Codeine) 300-30 mg Tab 1 Tab PO Q6H PRN Advair Diskus Inh (Fluticasone-Salmeterol Inh) 500-50 Mcg/Blist Aer 1 Puff INH BID Rinse mouth after use. Gabapentin 300 Mg Cap 300 Mg PO TID Docusate Sodium 100 Mg Cap 100 Mg PO BID Effexor XR 24 HR (Venlafaxine HCl) 75 Mg Cap 75 Mg PO DAILY Reported Clindamycin (Clindamycin HCl) 300 Mg Cap 300 Mg PO Q6H Review of Systems Except as stated in HPI: all other systems reviewed are Neg General / Constitutional: No: Fever Eyes: No: Visual changes HENT: Positive: Dental Difficulties, No: Headaches, Vertigo, Lightheadedness, Sore Throat, Rhinitis, Congestion, Nosebleed, Neck Stiffness, Neck Pain, Gingival Bleeding, Ear Discharge, Earache Cardiovascular: No: Chest Pain or Discomfort Respiratory: No: Shortness of Breath Gastrointestinal: No: Abdominal Pain Genitourinary: No: Dysuria Musculoskeletal: No: Pain Skin: No Rash Neurologic: No: Weakness Psychiatric: No: Depression Endocrine: No: Polydipsia Hematologic/Lymphatic: No: Easy Bruising Physical Exam Narrative GENERAL: Patient appears in mild to moderate distress. SKIN: Warm and dry. Normal color. Normal turgor. No signs of rash. HEAD: Atraumatic. Normocephalic. Patient has tenderness along the left lower jaw, without significant swelling EYES: Pupils equal and round. No scleral icterus. No injection or drainage. ENT: No nasal bleeding or discharge. Mucous membranes pink and moist. Patient has obvious periodontal disease to the left lower jawline with multiple caries noted. Pharynx is normal. Airways patent. No significant lymphadenopathy is noted NECK: Trachea midline. Supple and nontender. No signs of Garrett's angina. CARDIOVASCULAR: Regular rate and rhythm. RESPIRATORY: No accessory muscle use. Clear to auscultation. Breath sounds equal bilaterally. GASTROINTESTINAL: Abdomen soft, non-tender, nondistended. Hepatic and splenic margins not palpable. MUSCULOSKELETAL: Extremities without clubbing, cyanosis, or edema. No obvious deformities. NEUROLOGICAL: Awake and alert. No obvious cranial nerve deficits. Motor grossly within normal limits. Five out of 5 muscle strength in the arms and legs. Normal speech. PSYCHIATRIC: Appropriate mood and affect; insight and judgment normal. Data Data Last Documented VS Vital Signs Date Time Temp Pulse Resp B/P (MAP) Pulse Ox O2 Delivery O2 Flow Rate FiO2 04/24/18 19:11 98.7 77 19 147/84 (105) 100 MDM Medical Decision Making Medical Screen Exam Complete: Yes Emergency Medical Condition: Yes Medical Record Reviewed: Yes Differential Diagnosis Dental caries. Dental sensitivity. Dental pain. Dental abscess. Periodontal disease Narrative Course Patient is medically stable at time of exam. Patient is treated with Pen-Vee K 500 mg 4 times daily for 10 days. Patient is given Magic mouthwash as directed every 2 hours as needed #120 mL's with 3 refills. Patient should continue to take 100 mg of ibuprofen with 2 extra strength Tylenol 3 times daily with food. Patient is to follow-up with her dentist next week as scheduled. Diagnosis Primary Impression: Dentalgia Additional Impression: Chronic periodontal disease Referrals: Dentist Patient Instructions: General Instructions Additional Instructions: Patient is treated with Pen-Vee K 500 mg 4 times daily for 10 days. Patient is given Magic mouthwash as directed every 2 hours as needed #120 mL's with 3 refills. Patient should continue to take 100 mg of ibuprofen with 2 extra strength Tylenol 3 times daily with food. Patient is to follow-up with her dentist next week as scheduled. Med/Other Pt SpecificInfo: Prescription(s) given Disposition: 01 DISCHARGE HOME Condition: Stable Arcadio Parker April 24, 2018 19:24
[2018-04-24] MEDS ORDERED: PENI500T PO (19:25)
[2018-04-24] MEDS ORDERED: IBUP-232 PO (19:25)
[2018-04-24] MEDS ORDERED: MAGICADU2 SWISH-SPIT (19:25)
== END 2018-04-24 19:40 | disposition home or self-care (01) ==
LOC: NEPK 18:24
DX: K05.6 Periodontal disease, unspecified (principal)
CPT/HCPCS: 99283

== ENCOUNTER 2018-05-06 08:37 | Inpatient (IN) | payer MEDICAID ==
[~2018-05-06] VITALS: Ht 160 cm; Wt 70.5 kg
[2018-05-06] VITALS (7 sets, daily range): BP systolic 91–112; BP diastolic 56–78; PULSE 61–78; RESP 16–20; TEMP 98.6–98.8; O2SAT 98–100
[~2018-05-06 08:37] MED LIST changes: +MAGICADU2 SWISH-SPIT; +PENI500T PO
[2018-05-06] MEDS ORDERED: PAXI10TA8 PO (08:51)
[2018-05-06] MEDS ORDERED: TORADOL (08:51)
[2018-05-06] MEDS ORDERED: FAMOTIDINE 20 MG/2 ML VIAL IV PUSH SCH (09:15)
[2018-05-06] MEDS ORDERED: SODIUM CHLOR 0.9% 1000 ML INJ 1,000 ML IV ONE ×2 (09:15→11:30)
--- NOTE | 2018-05-06 09:20 | PD ---
HPI Chief Complaint: GI Complaint Time Seen by Provider: 08:53 Travel History International Travel<30 days: No Contact w/Intl Traveler<30days: No Traveled to known affect area: No History of Present Illness HPI Patient presents to the emergency department complaining of nausea vomiting and chest pain. States that she had 6 teeth extracted approximately 9 days ago and has had increased pain in the face and her ear. States that her teeth did not develop right as a child and she was advised to get them removed to get partials. Has been using Toradol for pain with last dose being yesterday. Reports nausea and vomiting 3 days, her p.o. intake. Last emesis was this morning and her last meal was last night. Also reports chest pain that started this morning. Chest pain is described as being left-sided, TH throughout the left side, achy/crampy, new onset, constant, no alleviating or aggravating factors. Also reporting some shortness of breath with the vomiting. She denies lower extremity edema, recent travel, back pain, vision change. Diarrhea was 2 days ago and stopped after she took antidiarrheal meds. She denies abdominal pain but he states that she feels nauseated and sick to her stomach with an "acid" taste in her mouth. Reports running a temperature of 99.5-100 consistently. PFSH Past Medical History Hx Anticoagulant Therapy: No Asthma: Yes Anxiety: Yes Depression: Yes Diabetes: No Diminished Hearing: No Headaches: Yes Kidney Stones: Yes Immunizations Current: Yes Shingles: Yes Tetanus Vaccination: Unknown ?: Not : 3 Para: 2 Miscarriage: 1 Past Surgical History Abdominal Surgery: Yes (GASTRIC BYPASS) Cholecystectomy: Yes Other Surgery: Yes (KIDNEY STONES REMOVED X2) Social History Alcohol Use: Yes (OCC) Tobacco Use: No Substance Use: No Allergies-Medications (Allergen,Severity, Reaction): Coded Allergies: No Known Allergies (Unverified Adverse Reaction, Unknown, 05/06/18) Reported Meds & Prescriptions Reported Meds & Active Scripts Active Penicillin V Potassium 500 Mg Tab 500 Mg PO Q6H 10 Days Ibuprofen 600 Mg Tab 600 Mg PO TID Advair Diskus Inh (Fluticasone-Salmeterol Inh) 500-50 Mcg/Blist Aer 1 Puff INH BID Rinse mouth after use. Reported [Toradol] Paxil (Paroxetine HCl) 10 Mg Tab 10 Mg PO DAILY Review of Systems Except as stated in HPI: all other systems reviewed are Neg Physical Exam Narrative GENERAL: No acute distress. Pale appearing. SKIN: Focused skin assessment warm/dry. HEAD: Atraumatic. Normocephalic. Positive frontal and maxillary sinus tenderness. EYES: Extraocular muscles intact bilaterally. No scleral icterus. No injection or drainage. TMs clear bilaterally. ENT: No nasal bleeding or discharge. Dry mucous membranes. NECK: Trachea midline. No JVD. Supple with full range of motion. CARDIOVASCULAR: Regular rate and rhythm. No murmur appreciated. Reproducible chest wall tenderness to palpation. RESPIRATORY: No accessory muscle use. Clear to auscultation. Breath sounds equal bilaterally. GASTROINTESTINAL: Abdomen soft, non-tender, nondistended. Hepatic and splenic margins not palpable. Rectal: Brown stool, trace positive Hemoccult MUSCULOSKELETAL: No obvious deformities. No clubbing. No cyanosis. No edema. NEUROLOGICAL: Awake and alert. No obvious cranial nerve deficits. Motor grossly within normal limits. Normal speech. PSYCHIATRIC: Appropriate mood and affect; insight and judgment normal. Data Data Last Documented VS Vital Signs Date Time Temp Pulse Resp B/P (MAP) Pulse Ox O2 Delivery O2 Flow Rate FiO2 05/06/18 10:51 61 16 91/56 (68) 98 Room Air 05/06/18 08:53 98.6 Orders Orders Electrocardiogram (05/06/18 09:07) Complete Blood Count With Diff (05/06/18 09:07) Comprehensive Metabolic Panel (05/06/18 09:07) Creatine Kinase (Cpk) (05/06/18 09:07) Ckmb (Isoenzyme) Profile (05/06/18 09:07) Troponin I (05/06/18 09:07) Prothrombin Time / Inr (Pt) (05/06/18 09:07) Act Partial Throm Time (Ptt) (05/06/18 09:07) Urinalysis - C+S If Indicated (05/06/18 09:07) D-Dimer (05/06/18 09:07) Magnesium (Mg) (05/06/18 09:07) Chest, Pa & Lat (05/06/18 09:07) Iv Access Insert/Monitor (05/06/18 09:07) Ecg Monitoring (05/06/18 09:07) Ct Facial Bones W/O Iv Cont (05/06/18 ) Ed Urine Pregnancytest Poc (05/06/18 09:07) Sodium Chlor 0.9% 1000 Ml Inj (Ns 1000 M (05/06/18 09:15) Famotidine Inj (Pepcid Inj) (05/06/18 09:15) Type And Screen (05/06/18 09:35) Red Blood Cells (Rbc) (05/06/18 09:35) Sodium Chlor 0.9% 250 Ml Inj (Ns 250 Ml (05/06/18 09:45) Ct Pulmonary Angiogram (05/06/18 10:11) Blood Product Administration (05/06/18 10:12) Sodium Chlor 0.9% 250 Ml Inj (Ns 250 Ml (05/06/18 10:15) Iohexol 350 Inj (Omnipaque 350 Inj) (05/06/18 10:44) Sodium Chlor 0.9% 1000 Ml Inj (Ns 1000 M (05/06/18 11:30) Admit Order (Ed Use Only) (05/06/18 11:36) Labs Laboratory Tests Test 05/06/18 09:10 05/06/18 09:50 White Blood Count 4.0 TH/MM3 Red Blood Count 3.58 MIL/MM3 Hemoglobin 6.7 GM/DL Hematocrit 22.2 % Mean Corpuscular Volume 61.9 FL Mean Corpuscular Hemoglobin 18.7 PG Mean Corpuscular Hemoglobin Concent 30.3 % Red Cell Distribution Width 17.1 % Platelet Count 294 TH/MM3 Mean Platelet Volume 8.6 FL Neutrophils (%) (Auto) 65.1 % Lymphocytes (%) (Auto) 22.1 % Monocytes (%) (Auto) 6.0 % Eosinophils (%) (Auto) 5.7 % Basophils (%) (Auto) 1.1 % Neutrophils # (Auto) 2.7 TH/MM3 Lymphocytes # (Auto) 0.9 TH/MM3 Monocytes # (Auto) 0.2 TH/MM3 Eosinophils # (Auto) 0.2 TH/MM3 Basophils # (Auto) 0.0 TH/MM3 CBC Comment AUTO DIFF Differential Comment AUTO DIFF CONFIRMED Sickle Cells 2+ Acanthocytes 1+ Keratocytes OCC Prothrombin Time 11.8 SEC Prothromb Time International Ratio 1.2 RATIO Activated Partial Thromboplast Time 25.0 SEC D-Dimer Quantitative (PE/DVT) 0.62 MG/L FEU Blood Urea Nitrogen 8 MG/DL Creatinine 0.50 MG/DL Random Glucose 85 MG/DL Total Protein 6.8 GM/DL Albumin 3.3 GM/DL Calcium Level 8.1 MG/DL Magnesium Level 2.1 MG/DL Alkaline Phosphatase 80 U/L Aspartate Amino Transf (AST/SGOT) 20 U/L Alanine Aminotransferase (ALT/SGPT) 23 U/L Total Bilirubin 0.4 MG/DL Sodium Level 140 MEQ/L Potassium Level 4.0 MEQ/L Chloride Level 109 MEQ/L Carbon Dioxide Level 24.6 MEQ/L Anion Gap 6 MEQ/L Estimat Glomerular Filtration Rate 135 ML/MIN Total Creatine Kinase 52 U/L Troponin I LESS THAN 0.02 NG/ML Urine Collection Type CLEAN CATCH Urine Color YELLOW Urine Turbidity CLEAR Urine pH 7.0 Urine Specific Sullivan 1.020 Urine Protein NEG mg/dL Urine Glucose (UA) NEG mg/dL Urine Ketones TRACE mg/dL Urine Occult Blood LARGE Urine Nitrite NEG Urine Bilirubin NEG Urine Urobilinogen 0.2 MG/DL Urine Leukocyte Esterase SMALL Urine RBC 10-14 /hpf Urine WBC 0-2 /hpf Urine Squamous Epithelial Cells 0-5 /hpf Microscopic Urinalysis Comment CULT NOT INDICATED MDM Medical Decision Making Medical Screen Exam Complete: Yes Emergency Medical Condition: Yes Interpretation(s) ECG: Rate 66, normal axis, T-wave inversion in leads III and a V1, no ST elevation or depression; anemic with hemoglobin of 6.7 and hematocrit of 22.2. PT and d-dimer increased. Labs: Cardiac enzymes negative, UA positive for blood and small leukocyte Esterase Last Impressions CT Angiography 05/06/18 1011 Signed Impressions: CONCLUSION: 1. No evidence for PE. 2. The lungs are clear. Chest X-Ray 05/06/18 0907 Signed Impressions: CONCLUSION: Negative examination. Maxillofacial CT 05/06/18 0000 Signed Impressions: CONCLUSION: 1. Significant dental disease with several missing mandibular molars bilateral ly. This is presumed to be at the site of recent extractions with a large corti artur defect left mandibular body with the teeth are missing. 2. No focal fluid collections or inflammatory stranding identified. Differential Diagnosis Sinusitis, dental abscess, ACS, PE, costochondritis, aspiration pneumonia, GERD Narrative Course She presents to the emergency department complaining of facial pain, nausea vomiting, chest pain. Patient was placed on clinical research monitor, IV access was obtained, and EKG/chest x-ray/CT face/labs/IV fluids ordered. Patient also given 20 mg IV Pepcid. 0938: Patient has been typed and crossed for 2 units of PRBCs for low hemoglobin and hematocrit. Rectal done. Patient states that her mother is a nurse and she wants to talk to her mom before she agrees to be consented for transfusion. Patient states that she has been told that she was anemic previously and has been placed on iron tablets. 1000: Patient consented for blood transfusion. Written for 1 unit PRBC transfusion.Another unit being held. 1124: Still awaiting blood, will give another liter of IV NS. Diagnosis Primary Impression: Anemia Qualified Codes: D64.9 - Anemia, unspecified Additional Impression: Atypical chest pain Admitting Information Admitting Physician Requests: Admit Condition: Stable Kelly Perez MD May 06, 2018 09:20
[2018-05-06 09:23] LABS: AUTOMATED NEUTROPHIL # 2.7 TH/MM3 (1.8-7.7); BASOPHIL % 1.1 % (0.0-2.0); EOSINOPHIL # 0.2 TH/MM3 (0-0.4); EOSINOPHIL % 5.7 % (0.0-4.0); HEMATOCRIT 22.2 % (35.0-46.0); LYMPH % 22.1 % (9.0-44.0); LYMPHOCYTE # 0.9 TH/MM3 (1.0-4.8); MEAN CELL VOLUME 61.9 FL (80.0-100.0); MEAN CORPUSCULAR HEMOGLOBIN 18.7 PG (27.0-34.0); MEAN CORPUSCULAR HGB CONC 30.3 % (32.0-36.0); MEAN PLATELET VOLUME 8.6 FL (7.0-11.0); MONOCYTE # 0.2 TH/MM3 (0-0.9); NEUT % 65.1 % (16.0-70.0); PLATELET COUNT 294 TH/MM3 (150-450); RED BLOOD COUNT 3.58 MIL/MM3 (4.00-5.30); RED CELL DISTRIBUTION WIDTH 17.1 % (11.6-17.2)
[2018-05-06 09:31] LABS: HEMOGLOBIN 6.7 GM/DL (11.6-15.3)
--- NOTE | 2018-05-06 09:44 | RADRPT ---
EXAM DATE: 05/06/2018 9:37 AM EDT AGE/SEX: 42 years / Female INDICATIONS: Chest pain. Weakness. CLINICAL DATA: This is the patient's initial encounter. Patient reports that signs and symptoms have been present for 3 days and indicates a pain score of 5/10. MEDICAL/SURGICAL HISTORY: None. None. COMPARISON: No prior exams available for comparison. FINDINGS: PA and lateral views of the chest demonstrate the lungs to be symmetrically aerated without evidence of mass, infiltrate or effusion. The cardiomediastinal contours are unremarkable. Osseous structures are intact. CONCLUSION: Negative examination. Electronically signed by: William Buckner MD 05/06/2018 9:42 AM EDT
[2018-05-06 09:45] LABS: INTERNATIONAL NORMALIZED RATIO 1.2 RATIO; PROTHROMBIN TIME - PATIENT 11.8 SEC (9.8-11.6)
[2018-05-06] MEDS ORDERED: SODIUM CHLOR 0.9% 250 ML INJ 250 ML IV ONE ×2 (09:45→10:15)
[2018-05-06 09:54] LABS: D-DIMER 0.62 MG/L FEU (0.00-0.50)
[2018-05-06 10:03] LABS: ACANTHOCYTES 1+ (NORMAL); KERATOCYTES OCC (NORMAL); SICKLE CELLS 2+ (NORMAL)
[2018-05-06 10:09] LABS: BILIRUBIN, URINE NEG (NEG); BLOOD, URINE LARGE (NEG); GLUCOSE,URINE NEG (NEG); KETONE, URINE TRACE mg/dL (NEG); NITRITE,URINE NEG (NEG); URINE COLOR YELLOW (YELLW/STRAW); URINE LEUKOCYTE ESTERASE SMALL (NEG)
[2018-05-06 10:12] LABS: GLOMERULAR FILTRATION RATE 135 ML/MIN (>89); TOTAL PROTEIN 6.8 GM/DL (6.4-8.2)
[2018-05-06 10:13] LABS: ALKALINE PHOSPHATASE 80 U/L (45-117); AST (GOT) 20 U/L (15-37)
[2018-05-06 10:14] LABS: WBC, URINE 0-2 /hpf (0-5)
[2018-05-06 10:15] LABS: SQUAMOUS EPITHELIAL CELL URINE 0-5 /hpf (0-5)
[2018-05-06 10:21] LABS: ALBUMIN 3.3 GM/DL (3.4-5.0); BLOOD UREA NITROGEN 8 MG/DL (7-18); GLUCOSE,RANDOM 85 MG/DL (74-106)
[2018-05-06 10:22] LABS: ALT (GPT) 23 U/L (10-53); BICARBONATE 24.6 MEQ/L (21.0-32.0); CALCIUM 8.1 MG/DL (8.5-10.1); CHLORIDE 109 MEQ/L (98-107); MAGNESIUM 2.1 MG/DL (1.5-2.5); SODIUM (NA) 140 MEQ/L (136-145); TOTAL BILIRUBIN ADULT 0.4 MG/DL (0.2-1.0)
[2018-05-06 10:23] LABS: TROPONIN I LESS THAN 0.02 NG/ML (0.02-0.05)
--- NOTE | 2018-05-06 10:37 | RADRPT ---
EXAM DATE: 05/06/2018 10:30 AM EDT AGE/SEX: 42 years / Female INDICATIONS: Status post six teeth extractions one week ago, with facial and sinus pain. CLINICAL DATA: This is the patient's initial encounter. Patient reports that signs and symptoms have been present for 1 week and indicates a pain score of 8/10. MEDICAL/SURGICAL HISTORY: Renal calculi. Cholecystectomy. Gastric bypass. Lithotripsy. RADIATION DOSE: 29.95 CTDI (mGy) COMPARISON: No prior exams available for comparison. TECHNIQUE: Contiguous images in the axial and coronal planes were obtained using helical multirow de tector technique. Using automated exposure control and adjustment of the mA and/or kV according to p atient size, radiation dose was kept as low as reasonably achievable to obtain optimal diagnostic jody lity images. FINDINGS: The paranasal sinuses are well aerated. There is a large defect within the mandible body on the left with several missing teeth. The defect involves the anterior cortex extending 2.6 cm in cephalocaudal dimension. There are also several missing mandibular molars on the right. There are no focal fluid c ollections or inflammatory stranding identified to suggest abscess. Fractures are seen. CONCLUSION: 1. Significant dental disease with several missing mandibular molars bilaterally. This is presumed t o be at the site of recent extractions with a large cortical defect left mandibular body with the haider th are missing. 2. No focal fluid collections or inflammatory stranding identified. Electronically signed by: William Buckner MD 05/06/2018 10:36 AM EDT
[2018-05-06] MEDS ORDERED: IOHEXOL 350 MG/ML 10 ML VIAL (for RAD DIAG) IVCONTRAST ONE (10:44)
--- NOTE | 2018-05-06 10:56 | RADRPT ---
EXAM DATE: 05/06/2018 10:43 AM EDT AGE/SEX: 42 years / Female INDICATIONS: Elevated D-dimer. Recent extraction of six teeth one week ago. CLINICAL DATA: This is the patient's initial encounter. Patient reports that signs and symptoms have been present for 1 day and indicates a pain score of 0/10. MEDICAL/SURGICAL HISTORY: Renal calculi. Cholecystectomy. Gastric bypass. Lithotripsy. RADIATION DOSE: 13.04 CTDI (mGy) COMPARISON: No prior exams available for comparison. TECHNIQUE: Volumetric scanning was performed using a multi-row detector CT scanner during bolus infu lo of 65 ml Omnipaque 350 (iohexol) nonionic water-soluble contrast as a single exam dose. The emili a was post processed with a variety of visualization algorithms including full volume maximum intensi ty projection and sliding thin slab reformation. Using automated exposure control and adjustment of the mA and/or kV according to patient size, radiation dose was kept as low as reasonably achievable t o obtain optimal diagnostic quality images. FINDINGS: There is no evidence for pulmonary embolism. No pleural or pericardial effusions are seen. There is n o adenopathy. The lungs are clear. The patient is status post gastric bypass procedure. The osseous s tructures are intact. CONCLUSION: 1. No evidence for PE. 2. The lungs are clear. Electronically signed by: William Buckner MD 05/06/2018 10:55 AM EDT
[2018-05-06] MEDS ORDERED: LACTULOSE SYRUP 20 GM/30 ML CUP PO PRN (12:00)
[2018-05-06] MEDS ORDERED: SENNOSIDES 8.6 MG TAB PO PRN (12:00)
[2018-05-06] MEDS ORDERED: BISACODYL 10 MG SUPP RECTAL PRN (12:00)
[2018-05-06] MEDS ORDERED: ACETAMINOPHEN 325 MG TAB PO PRN (12:00)
[2018-05-06] MEDS ORDERED: NALOXONE HCL 0.4 MG/ML AMP IV PUSH PRN (12:00)
[2018-05-06] MEDS ORDERED: TEMAZEPAM 15 MG CAP PO PRN (12:00)
[2018-05-06] MEDS ORDERED: MAGNESIUM HYDROXIDE SUSP 30 ML CUP PO PRN (12:00)
[2018-05-06] MEDS ORDERED: SODIUM CHLORIDE 0.9% FLUSH 10 ML FLUSH IV FLUSH PRN (12:00)
[2018-05-06] MEDS ORDERED: ONDANSETRON HCL 4 MG/2 ML VIAL IV PUSH PRN (12:45)
[2018-05-06] MEDS ORDERED: SODIUM CHLOR 0.9% 1000 ML INJ 1,000 ML IV SCH (13:00)
--- NOTE | 2018-05-06 14:27 | EKG ---
Date Performed: 05/06/2018 Time Performed: 09:21:29 PTAGE: 42 years EKG: Sinus rhythm PREVIOUS TRACING : 02/28/2017 17.29 Since the previous tracing, no significant change not ed DOCTOR: Tee Baca Interpretating Date/Time 05/06/2018 14:25:12
--- NOTE | 2018-05-06 14:36 | HHI.HP ---
[facility] Brittnee Alberts MD Admission Diagnosis Anemia, chest pain Diagnoses: (1) Anemia Diagnosis: Principal Chief Complaint: Vomiting, possible aspiration Travel History International Travel<30 Days: No Contact w/Intl Traveler <30 Da: No Traveled to Known Affected Are: No History of Present Illness Written by Lonny Belcher, acting as scribe for Dr. Gamble on 05/06/18 at 14: 35. 42-year-old female with known history of chronic anemia, asthma, anxiety, depression who presented to the emergency department because of fear of aspiration. Patient states that she did have multiple dental extractions done recently and she has had some mild bleeding but nothing significant, she had an episode of vomiting in which she felt as if she may have aspirated and because of that reason she came to emergency department for evaluation. Patient had workup done emergency department and found to have significant anemia with hemoglobin 6.7 and is recommended by the ER physician that the patient be observed in the hospital for further evaluation and management. ER documentation also indicates that the patient mentioned to them that she was experiencing left-sided chest pain which was aching and crampy without any alleviating factors. She reported some shortness of breath. Upon evaluating the patient she is resting comfortably in bed. Denying any chest discomfort, shortness of breath, difficulty breathing. She does indicate that she has been having some abdominal discomfort which she may be relating to her previous gastric bypass surgery. She has not followed up with her physician due to insurance reasons. Patient states that she usually gets the Depo-Provera shot and was without any. She had a period about 1 month ago, she indicates it lasted for 5 days and it was not heavy without any clots. Review of Systems Gastrointestinal: COMPLAINS OF: Abdominal pain, Nausea, Vomiting Except as stated in HPI: all other systems reviewed are Neg Past Family Social History Past Medical History Chronic anemia, never been evaluated by hematology Asthma Anxiety Depression Past Surgical History Gastric bypass 3 years ago Cholecystectomy Kidney stone removal Reported Medications Reported Meds & Active Scripts Active Penicillin V Potassium 500 Mg Tab 500 Mg PO Q6H 10 Days Ibuprofen 600 Mg Tab 600 Mg PO TID Advair Diskus Inh (Fluticasone-Salmeterol Inh) 500-50 Mcg/Blist Aer 1 Puff INH BID Rinse mouth after use. Reported [Toradol] Paxil (Paroxetine HCl) 10 Mg Tab 10 Mg PO DAILY Allergies: Coded Allergies: No Known Allergies (Unverified Adverse Reaction, Unknown, 05/06/18) Family History Family history reviewed and unremarkable Social History Patient denies any tobacco, alcohol or illicit drug Physical Exam Vital Signs Vital Signs Date Time Temp Pulse Resp B/P (MAP) Pulse Ox O2 Delivery O2 Flow Rate FiO2 05/06/18 13:03 98.8 70 20 106/70 (82) 98 05/06/18 12:42 05/06/18 12:12 98.6 72 18 104/65 (78) 99 Room Air 05/06/18 10:51 61 16 91/56 (68) 98 Room Air 05/06/18 09:37 67 16 106/62 (77) 100 Room Air 05/06/18 08:53 98.6 78 16 112/78 (89) 100 Physical Exam GENERAL: Well-developed, well-nourished, in no acute distress. alert and orientated HEENT: Head is normocephalic . Pupils equal round reactive to light. Extraocular muscles are intact. Conjunctivae were clear. NECK: Supple without any masses. Trachea midline no deviation. No JVD CARDIAC: Regular rhythm, regular rate. S1/S2 are heard. No murmurs LUNGS: Clear to auscultation bilaterally. No wheeze. No use of accessory muscles on inspiration or expiration. ABDOMEN: Soft, nontender. Nondistended. Bowel sounds heard in all 4 quadrants. Negative rebound, negative guarding EXTREMITIES: No edema, pulses are equal bilaterally. No cyanosis or clubbing NEUROLOGY: Mood and affect appear appropriate. Cranial nerves II through XII grossly intact. Muscle strength 5/5 in upper and lower extremities bilaterally. Laboratory Laboratory Tests Test 05/06/18 09:10 05/06/18 09:50 05/06/18 12:40 White Blood Count 4.0 Red Blood Count 3.58 Hemoglobin 6.7 Hematocrit 22.2 Mean Corpuscular Volume 61.9 Mean Corpuscular Hemoglobin 18.7 Mean Corpuscular Hemoglobin Concent 30.3 Red Cell Distribution Width 17.1 Platelet Count 294 Mean Platelet Volume 8.6 Neutrophils (%) (Auto) 65.1 Lymphocytes (%) (Auto) 22.1 Monocytes (%) (Auto) 6.0 Eosinophils (%) (Auto) 5.7 Basophils (%) (Auto) 1.1 Neutrophils # (Auto) 2.7 Lymphocytes # (Auto) 0.9 Monocytes # (Auto) 0.2 Eosinophils # (Auto) 0.2 Basophils # (Auto) 0.0 CBC Comment AUTO DIFF Differential Comment AUTO DIFF CONFIRMED Sickle Cells 2+ Acanthocytes 1+ Keratocytes OCC Prothrombin Time 11.8 Prothromb Time International Ratio 1.2 Activated Partial Thromboplast Time 25.0 D-Dimer Quantitative (PE/DVT) 0.62 Blood Urea Nitrogen 8 Creatinine 0.50 Random Glucose 85 Total Protein 6.8 Albumin 3.3 Calcium Level 8.1 Magnesium Level 2.1 Alkaline Phosphatase 80 Aspartate Amino Transf (AST/SGOT) 20 Alanine Aminotransferase (ALT/SGPT) 23 Total Bilirubin 0.4 Sodium Level 140 Potassium Level 4.0 Chloride Level 109 Carbon Dioxide Level 24.6 Anion Gap 6 Estimat Glomerular Filtration Rate 135 Total Creatine Kinase 52 Troponin I LESS THAN 0.02 Urine Collection Type CLEAN CATCH Urine Color YELLOW Urine Turbidity CLEAR Urine pH 7.0 Urine Specific [place] 1.020 Urine Protein NEG Urine Glucose (UA) NEG Urine Ketones TRACE Urine Occult Blood LARGE Urine Nitrite NEG Urine Bilirubin NEG Urine Urobilinogen 0.2 Urine Leukocyte Esterase SMALL Urine RBC 10-14 Urine WBC 0-2 Urine Squamous Epithelial Cells 0-5 Microscopic Urinalysis Comment CULT NOT INDICATED Result Diagram: 05/06/18 0910 05/06/18 [address] Angiography 05/06/18 1011 Signed Impressions: CONCLUSION: 1. No evidence for PE. 2. The lungs are clear. Chest X-Ray 05/06/18 0907 Signed Impressions: CONCLUSION: Negative examination. Maxillofacial CT 05/06/18 0000 Signed Impressions: CONCLUSION: 1. Significant dental disease with several missing mandibular molars bilateral ly. This is presumed to be at the site of recent extractions with a large corti artur defect left mandibular body with the teeth are missing. 2. No focal fluid collections or inflammatory stranding identified. Caprini VTE Risk Assessment Caprini VTE Risk Assessment: No/Low Risk (score <= 1) Caprini Risk Assessment Model Point Value = 1 Point Value = 2 Point Value = 3 Point Value = 5 Age 41-60 Minor surgery BMI > 25 kg/m2 Swollen legs Varicose veins or History of unexplained or recurrent spontaneous Oral contraceptives or hormone replacement Sepsis (< 1 month) Serious lung disease, including pneumonia (< 1 month) Abnormal pulmonary function Acute myocardial infarction Congestive heart failure (< 1 month) History of inflammatory bowel disease Medical patient at bed rest Age 61-74 Arthroscopic surgery Major open surgery (> 45 min) Laparoscopic surgery (> 45 min) Malignancy Confined to bed (> 72 hours) Immobilizing plaster cast Central venous access Age >= 75 History of VTE Family history of VTE Factor V Leiden Prothrombin [id number] Lupus anticoagulant Anticardiolipin antibodies Elevated serum homocysteine Heparin-induced thrombocytopenia Other congenital or acquired thrombophilia Stroke (< 1 month) Elective arthroplasty Hip, pelvis, or leg fracture Acute spinal cord injury (< 1 month) Prophylaxis Regimen Total Risk Factor Score Risk Level Prophylaxis Regimen 0-1 Low Early ambulation 2 Moderate Order ONE of the following: *Sequential Compression Device (SCD) *Heparin 5000 units SQ BID 3-4 Higher Order ONE of the following medications: *Heparin 5000 units SQ TID *Enoxaparin/Lovenox 40 mg SQ daily (WT < 150 kg, CrCl > 30 mL/min) *Enoxaparin/Lovenox 30 mg SQ daily (WT < 150 kg, CrCl > 10-29 mL/min) *Enoxaparin/Lovenox 30 mg SQ BID (WT < 150 kg, CrCl > 30 mL/min) AND/OR *Sequential Compression Device (SCD) 5 or more Highest Order ONE of the following medications: *Heparin 5000 units SQ TID (Preferred with Epidurals) *Enoxaparin/Lovenox 40 mg SQ daily (WT < 150 kg, CrCl > 30 mL/min) *Enoxaparin/Lovenox 30 mg SQ daily (WT < 150 kg, CrCl > 10-29 mL/min) *Enoxaparin/Lovenox 30 mg SQ BID (WT < 150 kg, CrCl > 30 mL/min) AND *Sequential Compression Device (SCD) Assessment and Plan Assessment and Plan 42-year-old female who presented to the hospital because of chest discomfort, shortness of breath after nausea and vomiting Chronic microcytic anemia -Patient's anemia is multifactorial with current history of iron deficiency, gastric bypass surgery, -differential indicating 2+ sickle cells, 1+ spurs cells, occasional keratocytes -We will obtain full anemia workup with iron studies, B12, folate, haptoglobin, LDH, retic count, hemoglobin electrophoresis -Hematology consulted for further recommendations -Hematology evaluated the patient and created a wonderful follow-up program for the patient. -Hematology recommends on infusing IV iron 100 mg, give vitamin B12 1000 mg IM, give vitamin D 5000 mg 1 -Hematology indicates patient may be discharged after infusion complete and follow-up in her office. She will follow the hematology studies and do further evaluation and management in outpatient setting. Chest discomfort with shortness of breath after nausea vomiting -Patient was concerned about aspiration. -D-dimer was performed which was mildly elevated, however pulmonary angiogram was unremarkable -CE x 2 neg and EKG's reviewed and showed no ST changes. Pt denied any chest pain upon eval -Patient without any signs of hypoxia or difficulty breathing Recent dental extractions -Patient requesting continued pain control -[place] 5 every 4 hours as needed for pain. -Pt to f/u w dentist as an outpatient DVT prevention -Sequential compression devices Discharge disposition Discharge home in stable condition Activity: Ad cristhian. Diet: Regular diet Medication per medication reconciliation Follow-up with primary medical doctor in 1 week, follow-up with hematology within 1 week Code Status Full code Discussed Condition With ER physician and patient Physician Certification 2 Midnight Certification Type: Admission for Inpatient Services Order for Inpatient Services The services are ordered in accordance with Medicare regulations or non- Medicare payer requirements, as applicable. In the case of services not specified as inpatient-only, they are appropriately provided as inpatient services in accordance with the 2-midnight benchmark. Estimated LOS (days): 2 days is the estimated time the patient will need to remain in the hospital, assuming treatment plan goals are met and no additional complications. Post-Hospital Plan: Not yet determined Lonny Belcher May 06, 2018 14:36 Sana Gamble MD May 06, 2018 18:03
[2018-05-06] MEDS: ACETAMINOPHEN/HYDROcodone 325 MG/5 MG TAB PO PRN ×2 (14:48→18:28)
[2018-05-06 15:33] LABS: TROPONIN I LESS THAN 0.02 NG/ML (0.02-0.05)
[2018-05-06] MEDS ORDERED: CYANOCOBALAMIN 1000 MCG/ML VIAL IM ONE (16:00)
[2018-05-06] MEDS ORDERED: NORC5TAB PO (16:00)
[2018-05-06] MEDS ORDERED: CHOLECALCIFEROL (VIT D3) 5000 UNIT CAP PO ONE (16:00)
[2018-05-06] MEDS ORDERED: IRON SUCROSE INJ 100 MG in SODIUM CHLORIDE 0.9% INJ 100 ML IV ONE (16:00)
--- NOTE | 2018-05-06 16:01 | HHI.DCPOC ---
Discharge Care Plan Diagnosis: (1) Anemia Goals to Promote Your Health * To prevent worsening of your condition and complications * To maintain your health at the optimal level Directions to Meet Your Goals Take your medications as prescribed Follow your dietary instruction Follow activity as directed Keep your appointments as scheduled Take your immunizations and boosters as scheduled If your symptoms worsen call your PCP, if no PCP go to Urgent Care Center or Emergency Room Smoking is Dangerous to Your Health. Avoid second hand smoke Call the 24-hour hour crisis hotline for domestic abuse at Lonny Belcher May 06, 2018 16:01
[2018-05-06 16:31] LABS: RETIC # 33.7 MIL/L (20.0-150.0); RETIC % 0.9 % (0.4-3.0)
[2018-05-06 16:45] LABS: IRON (FE) 8 MCG/DL (50-170)
[2018-05-06 17:11] LABS: FERRITIN 2 NG/ML (8-252); TOTAL IRON BINDING CAPACITY 403 MCG/DL (250-450)
[2018-05-06 17:15] LABS: FOLATE GREATER THAN 20.0 NG/ML (3.1-17.5)
--- NOTE | 2018-05-06 18:29 | MB ---
cc: Shilpa Joya MD,Sana VILLAVICENCIO DATE: 05/06/2018 REFERRING PHYSICIAN: Dr. Sana Gamble CHIEF COMPLAINT: Dr. Gamble requested consultation for Ms. Miramontes regarding microcytic anemia and questionable sickle cells seen on peripheral smear. HISTORY OF PRESENT ILLNESS: Ms. Miramontes is a 42-year-old woman with history of morbid obesity, status post gastric bypass surgery. She has lost weight and is stable at this point. She has not seen her gastric doctors for about 5 years. She describes having chronic anemia. She has asthma, anxiety, depression. She is recently under the care of psychiatry due to a divorce after 20 years. She has been titrating different anxiolytic and sleep medication. She had complications from her bridge and dental extraction was necessary of 6 teeth. She had a great deal of pain associated with her dental extractions and was taking pain medication prescribed by her dentist. On the morning of admission, she had some vomiting and was worried that she aspirated. She came into the hospital for further evaluation. She was acutely short of breath after she vomited. Chest x-ray was negative. CT angiogram was negative. The lungs were clear. No evidence for pulmonary embolism. There was no evidence for aspiration. CT of the maxillofacial areas showed dental disease, with several missing mandibular molars bilaterally. This is where the site of the extraction is. There is no sign of fluid collection or inflammatory stranding. There is no overt bleeding. During her hospitalization, she was found to have a hemoglobin of 6.7. She has been chronically anemic with a hemoglobin of 7.6 in September 2017. Interestingly, there were sickle cells that were seen on peripheral smear. There were also ovalocytes and acanthocytes identified. Iron studies are still pending. A serum B12 level is requested. Albumin is low at 3.5. Renal function is normal. TSH is normal. She describes some fatigue. She is able to work and works at [employer]. She reports she is able to climb stairs. She has never had a blood transfusion. She had heavy menses in the beginning of the year. Ever since Prove, she has only had one menstrual cycle. She denies any fevers, chills or night sweats. She has jaw pain from the extraction and even some sinus symptoms. She believes it was traumatic from the extraction. PAST MEDICAL HISTORY: Anxiety, depression, asthma, chronic anemia, iron deficiency, morbid obesity. PAST SURGICAL HISTORY: Gastric bypass 3 to 5 years ago, cholecystectomy, lithotripsy. FAMILY HISTORY: No family history of cancer. Mother is alive and well and works as a nurse. SOCIAL HISTORY: She denies any tobacco, alcohol or illicit drug use. She is recently . ALLERGIES: NO KNOWN DRUG ALLERGIES. CURRENT MEDICATIONS: Jocy-Colace, [place], Pepcid. PHYSICAL EXAMINATION: VITAL SIGNS: Temperature 98.6, heart rate 68, respiratory rate 20, blood pressure 110/68, saturation 98%. GENERAL: Ms. Miramontes is a well-developed, well-nourished young woman. She looks anxious and guarded. HEENT: Her pupils are round, reactive to light and accommodation. Oropharynx is clear. There is 3 molars missing in the lower jaw on both sides. NECK: Supple, with no adenopathy. LUNGS: Clear. CARDIOVASCULAR: Reveals normal rate and rhythm. ABDOMEN: Benign with redundant skin. LOWER EXTREMITIES: No edema. Good pulses. NEUROLOGIC: Nonfocal. LABORATORY DATA: As described above. Hemoglobin from 11/2016 was 11.3, hemoglobin from 02/2017 was 10.1. ASSESSMENT AND PLAN: Ms. Miramontes is a 42-year-old woman with a history of morbid obesity, status post gastric bypass surgery and subsequent anemia. She is suspected to have a nutritional etiology for her anemia with iron deficiency. B12 deficiency is relatively common post-gastric bypass surgery. She has not been under the care of her gastric doctors. She has clinical findings suspicious for iron deficiency. She gets fatigued. She has palpitation. She chews ice. We discussed the risks and benefit of parenteral iron therapy. We discussed giving her a dose of 100 mg of iron today and adjunctive therapy with B12. She is advised that she needs approximately 1.5 to 2 grams of parenteral iron in order to replace her iron stores completely and add iron to her reserve in the reticuloendothelial system. She would like to go home and, therefore, we coordinated a followup on outpatient basis. She is advised to followup in the hematology clinic this week to get the rest of her iron. Since the main reason that she came in for evaluation was because of her nausea, vomiting and fear for aspiration, not necessarily the shortness of breath, I suspect that her iron deficiency has been chronic and ongoing. She is well compensated. We can afford to avoid blood transfusion as I expect her prompt response with hematopoiesis with the administration of parenteral iron and B12. We will confirm this with a followup CBC on an outpatient basis. We discussed other nutritional deficiencies of calcium and vitamin D. These levels will be checked. She is followed by her primary at residency clinic. We will coordinate her care there. She is noted to take some ibuprofen, which may produce some GI symptoms. We will monitor closely for this. We will followup the result of the hemoglobin electrophoresis. The abnormal formed red cells are probably due to her severe iron deficiency. She has no significant family history of thalassemia. She is from [place] ancestry. It would be unlikely to have the sickle-cell gene. Hemoglobin electrophoresis has been drawn. Her questions were answered to her satisfaction. MD AMENA Carson/JERRY , 04:34 PM , 06:28 PM
[2018-05-06] MEDS ORDERED: DOCUSATE SODIUM 50 MG/SENNA 8.6 MG TAB PO SCH (21:00)
[2018-05-06] MEDS ORDERED: SODIUM CHLORIDE 0.9% FLUSH 10 ML FLUSH IV FLUSH SCH (21:00)
--- NOTE | 2018-05-07 14:45 | EKG ---
Date Performed: 05/06/2018 Time Performed: 15:02:04 PTAGE: 42 years EKG: Sinus rhythm WITH SHORT VT INTERVAL BORDERLINE ECG Since the PREVIOUS TRACING , no significant change noted PREVIOUS TRACIN05/06/2018 09.21 DOCTOR: Colby Mayfield Interpretating Date/Time 05/07/2018 14:43:18
== END 2018-05-06 18:35 | disposition home or self-care (01) | DRG 812 ==
LOC: PHED 08:37 → PHEDA 11:37 → PH3A 12:57
PROVIDERS: ADMIT Hospitalist; ATTEND Hospitalist
DX: D50.9 Iron deficiency anemia, unspecified (principal); R51 Headache; R07.89 Other chest pain; R11.2 Nausea with vomiting, unspecified; K08.89 Other specified disorders of teeth and supporting structures; R68.84 Jaw pain; R00.2 Palpitations; F32.9 Major depressive disorder, single episode, unspecified; F41.9 Anxiety disorder, unspecified; J45.909 Unspecified asthma, uncomplicated; Z87.442 Personal history of urinary calculi; Z98.84 Bariatric surgery status
CPT/HCPCS: 70486; 71046; 71275; 80053; 81001; 82550; 82607; 82728; 82746; 83010; 83020; 83540; 83550; 83615; 83735; 84443; 84484; 84703; 85025; 85044; 85379; 85610; 85730; 86850; 86900; 86901; 86920; 93005; J1756; J3420; J7030; Q9967